=== PATIENT | male | born 1950 | race Caucasian/White ===

== ENCOUNTER → 2017-02-09 | Outpatient (CLI) | payer OTHER ==
[2015-10-13 12:14] VITALS: BP 158/78
--- NOTE | 2017-02-09 18:11 | RAD ---
HISTORY: Restrictive lung disease. Study: PA and lateral chest. Comparison: None. Findings: Study slightly limited secondary to the right costophrenic angle off the field of view. The trachea is midline. Postsurgical changes status post CABG. The cardiac silhouette is mildly enla rged. Obscuration of the left hemidiaphragm and costophrenic angle. This appears to localize to the lingula on the lateral view. This may represent infiltrate and associated parapneumonic effusion. A telectasis versus scarring is seen within the left mid lung. The visualized right lung is clear. No obvious pneumothorax. The bony thorax is unremarkable. IMPRESSION: Constellation of findings which may represent a lingular pneumonia and associated parapn eumonic effusion. Recommend clinical correlation and followup chest x-ray in 4-6 weeks to document s tability/resolution. Reported By:
== END ==
LOC: RAD 16:47
PROVIDERS: ATTEND Internal Medicine Sleep Medicine
DX: J98.4 Other disorders of lung (principal)
CPT/HCPCS: 71020

== ENCOUNTER → 2017-03-15 | Outpatient (CLI) | payer OTHER ==
[2015-10-13 12:14] VITALS: BP 158/78
[~2017-03-15] MED LIST: NS 100 ML IV 0 ML IV ONE
[2017-03-15 08:36] LABS: CREATININE 2.18 mg/dL (0.70-1.30)
--- NOTE | 2017-03-15 11:13 | CT ---
HISTORY: Pneumonia Study: CT chest without contrast Comparison: Chest radiographs performed on February 09, 2017 Technique: Multiple axial images of the chest were obtained from the thoracic inlet to the upper abdo men without the administration of IV contrast. Dose reduction techniques were utilized including auto mated exposure control (AEC) and adjustment of mA and kV. Findings: The mediastinum does not demonstrate significant pathological lymphadenopathy. There is no pericardi al effusion observed. Images demonstrate mild aneurysmal dilatation of the ascending thoracic aorta which measures up to 4.1 cm in caliber. Atherosclerotic changes are seen within the visualized pham ry arteries and aorta. Scattered areas of suspected atelectasis and or scarring are seen within the r ight middle lobe, lingula, and both lower lobes. Otherwise no CT evidence of focal consolidation, pne umothorax, or pleural effusion is identified. If symptoms are clinical concern persist recommend cont inued followup for further evaluation. IMPRESSION: 1. Mild aneurysmal dilatation of the ascending thoracic aorta measuring up to 4.1 cm in caliber. 2. Scattered areas of atelectasis and scarring without evidence of focal consolidation. Reported By:
== END | disposition home or self-care (01) | DRG 194 ==
LOC: RAD 08:07
PROVIDERS: ATTEND Internal Medicine Sleep Medicine
DX: J18.8 Other pneumonia, unspecified organism (principal); I71.2 Thoracic aortic aneurysm, without rupture; J98.11 Atelectasis
CPT/HCPCS: 36415; 71250; 82565; 84520

== ENCOUNTER 2017-06-23 20:49 | Emergency (ER) | payer OTHER ==
[2017-06-23 21:01] VITALS: BP 186/79; BMI 42.7
--- NOTE | 2017-06-23 22:32 | DR.GENAD ---
HPI - PCP Primary Care Physician: Zana - Complaint/Symptoms Chief Complaint Doctors Comments: Patient presented with complaint of nausea today and when his took his BP is developed a know in his left forearm. The pain was severe. He admits to have had ByPass surgery in the left carotid surgery. Chief Complaint:: KNOT in blood vessel in arm - Source History Provided: Patient - Mode of Arrival Mode of Arrival: Ambulatory - Timing Onset of Chief Complaint: 06/23/17 PMH - PMH Past Medical History: Yes Past Medical History: Angina, Arthritis, Diabetes, Gout, Hypertension, Renal Disease Past Medical History Comment: Lupus Past Surgical History: Yes Past Surgical History Comment: Double Bipass in 2009 - Family History History of Family Medical Conditions: No - Social History Does patient currently use any type of tobacco product: No Have you used tobacco products in the last 12 months: No Type of Tobacco Use: None Does any household member use tobacco: No Alcohol Use: None Do you use any recreational Drugs:: No Lives With: Alone Lives Where: Home - infectious screening In the last 2 months have you had wt loss of >10#?: NO Have you had fever, night sweats or hemotysis?: No Have you traveled outside the country in the last 6 months?: No ROS - Review of Systems Eyes: No Symptoms Reported ENTM: No Symptoms Reported Respiratoy: No Symptoms Reported Cardiovascular: No Symptoms Reported Gastrointestinal/Abdominal: No Symptoms Reported Genitourinary: No Symptoms Reported Neurological: No Symptoms Reported Musculoskeletal: No Symptoms Reported Integumentary: No Symptoms Reported Hematologic/Lymphatic: No Symptoms Reported Endocrine: No Symptoms Reported Psychiatric: No Symptoms Reported All Other Systems: Reviewed and Negative PE - Vital Signs Vitals: Temperature 97.8 F Pulse Rate 60 Respiratory Rate 18 Blood Pressure 186/79 O2 Sat by Pulse Oximetry 95 - General General Appearance: Alert, In No Apparent Distress - Head Head Exam: Normal Inspection, Atraumatic - Eyes Eye exam: Normal Appearance, PERRL, EOMI - ENT ENT Exam: Normal Exam External Ear Exam: Normal External Inspection TM/Canal Exam: Bilateral Normal Nose Exam: Normal Nose Exam, Sinus Tenderness Mouth Exam: Normal Inspection Throat Exam: Normal Inspection - Neck Neck Exam: Normal Inspection - Chest Chest Inspection: Normal Inspection - Respiratory Respiratory Exam: Normal Lung Sounds Bilat Respiratory Exam: Bilateral Clear to Auscultation - Cardiovascular Cardiovascular Exam: Regular Rate, Normal Rhythm - Abdominal Exam Abdominal Exam: Normal Inspection Abdominal Tenderness: negative: RUQ, RLQ, LUQ, LLQ, Epigastrium, Suprapubic, Diffuse, Mild, Moderate, Severe, Other - Extremities Extremities Exam: Normal Inspection - Back Back Exam: Normal Inspection - Neurologic Neurological Exam: Alert, Oriented X3, CN II-XII Intact - Skin Skin Exam: Warm, Dry Course - Reevaluation 1st: Improved ROR - Labs Reviewed Laboratory Results Reviewed?: Yes (D Dimer negative) Result Diagrams: 06/23/17 22:43 06/23/17 22:43 Laboratory: WBC 8.9 X10^3/uL (3.6-10.0) 06/23/17 22:43 RBC 4.21 X10^6/uL (4.7-6.0) L 06/23/17 22:43 Hgb 12.4 g/dL (13.5-18.0) L 06/23/17 22:43 Hct 37.2 % (42.0-54.0) L 06/23/17 22:43 MCV 88.4 fL (80.0-100.0) 06/23/17 22:43 MCH 29.3 pg (27.0-34.0) 06/23/17 22:43 MCHC 33.2 g/dL (33.0-35.0) 06/23/17 22:43 RDW 14.2 % (11.6-16.5) 06/23/17 22:43 Plt Count 239 X10^3/uL (150.0-450.0) 06/23/17 22:43 MPV 8.1 fL (7.4-11.0) 06/23/17 22:43 Neut % 77.5 % (42.0-75.0) H 06/23/17 22:43 Lymph % 12.9 % (21.0-51.0) L 06/23/17 22:43 [place] % 8.3 % (0.0-13.0) 06/23/17 22:43 Eos % 0.7 % (0.9-2.9) L 06/23/17 22:43 Baso % 0.6 % (0.2-1.0) 06/23/17 22:43 Neut # 6.9 x10^3/uL (2.2-4.8) H 06/23/17 22:43 Lymph # 1.2 X10^3/uL (1.3-2.9) L 06/23/17 22:43 [place] # 0.7 x10^3/uL (0.3-0.8) 06/23/17 22:43 Eos # 0.1 x10^3/uL (0.0-0.2) 06/23/17 22:43 Baso # 0.1 X10^3/uL (0.0-0.1) 06/23/17 22:43 Absolute Nucleated RBC 0.1 /100WBC 06/23/17 22:43 D-Dimer 261 ng/mL (0-400) 06/23/17 22:43 Sodium 138 mmol/L (136-145) 06/23/17 22:43 Corrected Sodium 138 mmol/L (136-145) 06/23/17 22:43 Potassium 4.6 mmol/L (3.5-5.1) 06/23/17 22:43 Chloride 103 mmol/L (98-107) 06/23/17 22:43 Carbon Dioxide 27.5 mmol/L (21-32) 06/23/17 22:43 BUN 45 mg/dL (7-18) H 06/23/17 22:43 Creatinine 2.05 mg/dL (0.70-1.30) H 06/23/17 22:43 Est GFR (MDRD) Af Amer 42 (>60) L 06/23/17 22:43 Est GFR (MDRD) Non-Af 35 (>60) L 06/23/17 22:43 Glucose 116 mg/dL (65-99) H 06/23/17 22:43 POC Glucose (mg/dL) 114 mg/dL (65-99) H 06/23/17 23:24 Calcium 9.2 mg/dL (8.5-10.1) 06/23/17 22:43 - Diagnosis Discharge Problem: Negative pulmonary emboli, Stage III chronic kidney disease - Discharge Plan Condition: Stable - Follow ups/Referrals Follow ups/Referrals: Yonatan Spann [Primary Care Provider] - 3 days - Instructions
[2017-06-23 22:53] LABS: BASOPHILS # (AUTO) 0.1 X10^3/uL (0.0-0.1); BASOPHILS % (AUTO) 0.6 % (0.2-1.0); EOSINOPHILS # (AUTO) 0.1 x10^3/uL (0.0-0.2); EOSINOPHILS % (AUTO) 0.7 % (0.9-2.9); HEMATOCRIT 37.2 % (42.0-54.0); HEMOGLOBIN 12.4 g/dL (13.5-18.0); LYMPHOCYTES # (AUTO) 1.2 X10^3/uL (1.3-2.9); LYMPHOCYTES % (AUTO) 12.9 % (21.0-51.0); MEAN CORPUSCULAR HEMOGLOBIN 29.3 pg (27.0-34.0); MEAN CORPUSCULAR HGB CONC 33.2 g/dL (33.0-35.0); MEAN CORPUSCULAR VOLUME 88.4 fL (80.0-100.0); MEAN PLATELET VOLUME 8.1 fL (7.4-11.0); MONOCYTES # (AUTO) 0.7 x10^3/uL (0.3-0.8); MONOCYTES % (AUTO) 8.3 % (0.0-13.0); NEUTROPHILS # (AUTO) 6.9 x10^3/uL (2.2-4.8); NEUTROPHILS % (AUTO) 77.5 % (42.0-75.0); PLATELET COUNT 239 X10^3/uL (150.0-450.0); RED BLOOD COUNT 4.21 X10^6/uL (4.7-6.0); RED CELL DISTRIBUTION WIDTH 14.2 % (11.6-16.5); WHITE BLOOD COUNT 8.9 X10^3/uL (3.6-10.0)
[2017-06-23 22:59] LABS: CALCIUM 9.2 mg/dL (8.5-10.1); CARBON DIOXIDE 27.5 mmol/L (21-32); CREATININE 2.05 mg/dL (0.70-1.30)
== END 2017-06-23 23:56 | disposition home or self-care (01) ==
LOC: ER 20:49
DX: R11.0 Nausea (principal); N18.3 Chronic kidney disease, stage 3 (moderate); Z98.890 Other specified postprocedural states
CPT/HCPCS: 36415; 80048; 85025; 85378; 99282; 99283

== ENCOUNTER 2018-12-10 17:01 | Inpatient (IN) ==
[2018-12-10 18:55] LABS: BASOPHILS % (AUTO) 0.4 % (0.2-1.0); EOSINOPHILS % (AUTO) 0.3 % (0.9-2.9); HEMATOCRIT 35.7 % (42.0-54.0); HEMOGLOBIN 11.7 g/dL (13.5-18.0); LYMPHOCYTES # (AUTO) 1.2 X10^3/uL (1.3-2.9); LYMPHOCYTES % (AUTO) 10.9 % (21.0-51.0); MEAN CORPUSCULAR HEMOGLOBIN 27.5 pg (27.0-34.0); MEAN CORPUSCULAR HGB CONC 32.8 g/dL (33.0-35.0); MEAN CORPUSCULAR VOLUME 83.9 fL (80.0-100.0); MEAN PLATELET VOLUME 7.7 fL (7.4-11.0); MONOCYTES # (AUTO) 0.6 x10^3/uL (0.3-0.8); NEUTROPHILS # (AUTO) 8.9 x10^3/uL (2.2-4.8); NEUTROPHILS % (AUTO) 82.4 % (42.0-75.0); PLATELET COUNT 342 X10^3/uL (150.0-450.0); RED BLOOD COUNT 4.25 X10^6/uL (4.7-6.0); WHITE BLOOD COUNT 10.8 X10^3/uL (3.6-10.0)
[2018-12-10 19:09] LABS: ALANINE AMINOTRANSFERASE 23 Units/L (12-78); ALBUMIN 3.5 g/dL (3.4-5.0); ALKALINE PHOSPHATASE 87 Units/L (46-116); AMYLASE 39 Units/L (25-115); ASPARTATE AMINO TRANSFERASE 21 Units/L (15-37); BLOOD UREA NITROGEN 42 mg/dL (7-18); CALCIUM 9.8 mg/dL (8.5-10.1); CARBON DIOXIDE 29.3 mmol/L (21-32); CHLORIDE 99 mmol/L (98-107); COR NA(FOR HYPERGLY) 141 mmol/L (136-145); CREATININE 2.29 mg/dL (0.70-1.30); LIPASE 93 Units/L (73-393); SODIUM 139 mmol/L (136-145); TOTAL PROTEIN 7.4 g/dL (6.4-8.2); eGFR NON BLACK RACES 31 (>60)
[2018-12-10] MEDS ORDERED: NS 1000 ML 1,000 ML ONE (19:46)
[2018-12-10] MEDS ORDERED: ZOFRAN INJ 4 MG VIAL ONE (19:47)
[2018-12-10] MEDS: SNACK - Diabetic Appropriate PO SCH (20:00)
[2018-12-10] MEDS: NS 1000 ML 1,000 ML IV SCH (20:20)
[2018-12-10] MEDS: ZOFRAN INJ 4 MG VIAL IVP PRN (20:20)
[2018-12-10] MEDS ORDERED: PROVENTIL NEB TX 0.083% 2.5MG/ 3ML NEB PRN (20:29)
[2018-12-10] MEDS: AMBIEN PO SCH (21:00)
[2018-12-10 21:45] LABS: BILIRUBIN,URINE NEGATIVE (NEGATIVE); BLOOD/HEMOGLOBIN,URINE 3+ (NEGATIVE); GLUCOSE, URINE NEGATIVE (NEGATIVE); KETONES,URINE NEGATIVE (NEGATIVE); LEUKOCYTE ESTERASE ,URINE NEGATIVE (NEGATIVE); NITRITES,URINE NEGATIVE (NEGATIVE); PROTEIN,URINE 1+ (NEGATIVE); UROBILINOGEN,URINE NORMAL (NORMAL)
[2018-12-10 21:55] LABS: APPEARANCE,URINE CLEAR (CLEAR); BACTERIA,URINE NEGATIVE /HPF (NEGATIVE); COLOR,URINE YELLOW (YELLOW); HYALINE CASTS, URINE FEW /LPF (NEGATIVE); SQUAMOUS EPITHELIAL CELL,UR NEGATIVE /HPF (NEGATIVE)
[2018-12-11 06:05] LABS: BASOPHILS # (AUTO) 0.1 X10^3/uL (0.0-0.1); BASOPHILS % (AUTO) 1.3 % (0.2-1.0); EOSINOPHILS # (AUTO) 0.1 x10^3/uL (0.0-0.2); EOSINOPHILS % (AUTO) 1.4 % (0.9-2.9); HEMATOCRIT 33.8 % (42.0-54.0); HEMOGLOBIN 10.9 g/dL (13.5-18.0); LYMPHOCYTES # (AUTO) 1.6 X10^3/uL (1.3-2.9); LYMPHOCYTES % (AUTO) 16.9 % (21.0-51.0); MEAN CORPUSCULAR HEMOGLOBIN 27.3 pg (27.0-34.0); MEAN CORPUSCULAR HGB CONC 32.4 g/dL (33.0-35.0); MEAN CORPUSCULAR VOLUME 84.3 fL (80.0-100.0); MEAN PLATELET VOLUME 8.4 fL (7.4-11.0); MONOCYTES # (AUTO) 0.9 x10^3/uL (0.3-0.8); NEUTROPHILS # (AUTO) 6.4 x10^3/uL (2.2-4.8); NEUTROPHILS % (AUTO) 70.4 % (42.0-75.0); PLATELET COUNT 279 X10^3/uL (150.0-450.0); RED BLOOD COUNT 4.01 X10^6/uL (4.7-6.0); RED CELL DISTRIBUTION WIDTH 15.4 % (11.6-16.5); WHITE BLOOD COUNT 9.2 X10^3/uL (3.6-10.0)
[2018-12-11 06:27] LABS: ALANINE AMINOTRANSFERASE 22 Units/L (12-78); ALBUMIN 3.1 g/dL (3.4-5.0); ALKALINE PHOSPHATASE 75 Units/L (46-116); ASPARTATE AMINO TRANSFERASE 22 Units/L (15-37); BLOOD UREA NITROGEN 41 mg/dL (7-18); CALCIUM 9.4 mg/dL (8.5-10.1); CARBON DIOXIDE 30.9 mmol/L (21-32); CHLORIDE 102 mmol/L (98-107); COR CA(FOR HYPOALB) 10.1 mg/dL (8.5-10.1); CREATININE 2.14 mg/dL (0.70-1.30); SODIUM 141 mmol/L (136-145); TOTAL PROTEIN 6.8 g/dL (6.4-8.2); eGFR NON BLACK RACES 33 (>60)
--- NOTE | 2018-12-11 06:39 | RAD ---
HISTORY: Abdominal pain Study: KUB Comparison: None Findings: The abdominal gas pattern is nonspecific and nonobstructive. No abnormal calcifications or abnormal masses are identified. The regional skeleton is intact. IMPRESSION: Unremarkable KUB Reported By:
[2018-12-11 07:18] VITALS: BMI 39.7
[2018-12-11] MEDS ORDERED: PHARMACY CONSULT - DOSE _____ XX SCH (08:00)
[2018-12-11] MEDS: NORCO 5/325 MG TAB PO PRN (09:16)
[2018-12-11] MEDS: MILK OF MAGNESIA PO SCH ×3 (09:40→21:05)
[2018-12-11] MEDS: MIRALAX POWDER (1 DOSE 17 G) PO SCH ×2 (09:42→21:09)
[2018-12-11] MEDS ORDERED: ULORIC PO SCH (11:00)
[2018-12-11] MEDS: NORMODYNE TAB 100 MG PO SCH ×2 (11:38→21:06)
[2018-12-11] MEDS: SYNTHROID 100 mcg TAB PO SCH (11:38)
[2018-12-11] MEDS: ASPIRIN EC 81 MG PO SCH (11:38)
[2018-12-11] MEDS: PATIENT'S HOME MEDICATION (Mycophenolate Mofetil [Mycophenolate Mofetil] 500 MG) PO SCH ×2 (11:39→21:21)
[2018-12-11] MEDS: NS 1000 ML 1,000 ML IV SCH (12:34)
[2018-12-11] MEDS: HumuLIN R SUBCUT PRN ×2 (12:35→21:21)
[2018-12-11] MEDS: EFFEXOR TAB 50 MG (BID DOSING) PO SCH ×2 (14:50→21:19)
--- NOTE | 2018-12-11 16:40 | DR.UPDATE ---
H&P Update History and Physical Update: WAS SEEN IN THE OFFICE TODAY DUE TO COMPLAINTS OF ABDOMINAL PAIN, CONSTIPATION, FATIGUE, HYPERTENSION, DECREASED APPETITE, AND NEARLY PASSING OUT. HE HAS A HISTORY OF DIABETES AND RENAL DISEASE. WE ADMITTED PATIENT FOR FURTHER EVALUATION AND TREATMENT. ON ADMISSION, WE PLAN TO OBTAIN LABS AND KUB. WE WILL START NORMAL SALINE AT 50ML/HR AND A BOWEL REGIMEN. OTHERWISE, WE WILL MONITOR. NO CHANGES NOTED TO H&P. Changes noted: NO Prescription drug monitoring program results: PDMP reviewed and no concerns identified
--- NOTE | 2018-12-11 17:28 | PCM.PROG ---
Progress Note - Progress Note for Day of Date of Exam: 12/11/18 - Subjective Subjective: IS BEING TREATED FOR ABDOMINAL PAIN, CONSTIPATION, AND NEAR SYNCOPE. TODAY, HE IS ALERT AND ORIENTED, LYING IN BED ON MORNING ROUNDS. HE CONTINUES WITH ABDOMINAL PAIN AND WEAKNESS THIS MORNING. ON EXAMINATION, HEART IS REGULAR IN RATE AND RHYTHM. BILATERAL LUNGS ARE NOTED WITH DIMINISHED LUNG SOUNDS THROUGHOUT. ABDOMEN IS ROUND, SOFT, AND NOTED WITH DIFFUSE TENDERNESS. HYPOACTIVE BOWEL SOUNDS NOTED. HIS VITALS THIS MORNING ARE: 98.0-64-24-96%-187/76. LABS WERE OBTAINED. ABNORMAL LAB VALUES INCLUDE THE FOLLOWING: RBC 4.01, HGB 10.9, HCT 33.8, BUN 41, CREATININE 2.14, ALBUMIN 3.1. A KUB WAS OBTAINED ON ADMISSION AND REVEALED: The abdominal gas pattern is nonspecific and nonobstructive. No abnormal calcifications or abnormal masses are identified. The regional skeleton is intact. HE IS CURRENTLY RECEIVING NORMAL SALINE AT 50ML/HR AND IS RECEIVING A BOWEL REGIMEN. WE WILL CONTINUE WITH CURRENT PLAN OF CARE AND WILL RESUME HIS HOME MEDICATIONS TODAY. OTHERWISE, WE WILL FOLLOW UP WITH AM LABS AND CONTINUE TO MONITOR. - Past Medical Family Social History Past Med/Fam/Surg Hx: No changes since H&P Allergies: Allergies codeine Allergy (Verified 06/24/17 05:00) - Review of Systems ROS: No change since H&P - Vital Signs and I&O's Vital Signs: Temperature 98.4 F Pulse Rate [Right Brachial] 61 Pulse Rate 63 Respiratory Rate 20 Blood Pressure [Right Arm] 130/62 Blood Pressure 186/79 O2 Sat by Pulse Oximetry 97 Intake and Output: Intake & Output 12/09/18 12/10/18 12/11/18 12/12/18 11:59 11:59 11:59 11:59 Intake Total 1790 / 1790 780 / 780 Balance 1790 / 1790 780 / 780 - Physical Exam Oriented: Normal Eyes: Normal Ear: Normal Nose: Normal Throat: Normal Respiratory: Generalized, Diminished Cardiovascular: Normal. negative: S3, S4, Murmur : Normal Auscultation: Bowel Sounds: Decreased Palpation: Normal Tenderness: Diffuse, Moderate, Rebound, Guarding, Rigidity Skin: Normal Musculoskeletal: Normal Psychiatric: Normal Mood Description: Calm Affect: Normal Speech Pattern: Clear, Appropriate - Laboratory and Diagnostics Result Diagrams: 12/11/18 05:24 12/11/18 05:24 Labs: Laboratory WBC 9.2 X10^3/uL (3.6-10.0) 12/11/18 05:24 RBC 4.01 X10^6/uL (4.7-6.0) L 12/11/18 05:24 Hgb 10.9 g/dL (13.5-18.0) L 12/11/18 05:24 Hct 33.8 % (42.0-54.0) L 12/11/18 05:24 MCV 84.3 fL (80.0-100.0) 12/11/18 05:24 MCH 27.3 pg (27.0-34.0) 12/11/18 05:24 MCHC 32.4 g/dL (33.0-35.0) L 12/11/18 05:24 RDW 15.4 % (11.6-16.5) 12/11/18 05:24 Plt Count 279 X10^3/uL (150.0-450.0) 12/11/18 05:24 MPV 8.4 fL (7.4-11.0) 12/11/18 05:24 Neut % (Auto) 70.4 % (42.0-75.0) 12/11/18 05:24 Lymph % (Auto) 16.9 % (21.0-51.0) L 12/11/18 05:24 [place] % (Auto) 10.0 % (0.0-13.0) 12/11/18 05:24 Eos % (Auto) 1.4 % (0.9-2.9) 12/11/18 05:24 Baso % (Auto) 1.3 % (0.2-1.0) H 12/11/18 05:24 Neut # (Auto) 6.4 x10^3/uL (2.2-4.8) H 12/11/18 05:24 Lymph # (Auto) 1.6 X10^3/uL (1.3-2.9) 12/11/18 05:24 [place] # (Auto) 0.9 x10^3/uL (0.3-0.8) H 12/11/18 05:24 Eos # (Auto) 0.1 x10^3/uL (0.0-0.2) 12/11/18 05:24 Baso # (Auto) 0.1 X10^3/uL (0.0-0.1) 12/11/18 05:24 Absolute Nucleated RBC 0.0 /100WBC 12/11/18 05:24 Sodium 141 mmol/L (136-145) 12/11/18 05:24 Corrected Sodium TNP 12/11/18 05:24 Potassium 3.9 mmol/L (3.5-5.1) 12/11/18 05:24 Chloride 102 mmol/L (98-107) 12/11/18 05:24 Carbon Dioxide 30.9 mmol/L (21-32) 12/11/18 05:24 BUN 41 mg/dL (7-18) H 12/11/18 05:24 Creatinine 2.14 mg/dL (0.70-1.30) H 12/11/18 05:24 Est GFR (MDRD) Af Amer 40 (>60) L 12/11/18 05:24 Est GFR (MDRD) Non-Af 33 (>60) L 12/11/18 05:24 Glucose 92 mg/dL (65-99) 12/11/18 05:24 POC Glucose (mg/dL) 254 mg/dL (65-99) H 12/11/18 16:03 Calcium 9.4 mg/dL (8.5-10.1) 12/11/18 05:24 Corrected Calcium 10.1 mg/dL (8.5-10.1) 12/11/18 05:24 Total Bilirubin 0.30 mg/dL (0.2-1.0) 12/11/18 05:24 AST 22 Units/L (15-37) 12/11/18 05:24 ALT 22 Units/L (12-78) 12/11/18 05:24 Alkaline Phosphatase 75 Units/L (46-116) 12/11/18 05:24 Total Protein 6.8 g/dL (6.4-8.2) 12/11/18 05:24 Albumin 3.1 g/dL (3.4-5.0) L 12/11/18 05:24 Globulin 3.7 g/dL (2.5-4.5) 12/11/18 05:24 Albumin/Globulin Ratio 0.8 Ratio (1.1-2.1) L 12/11/18 05:24 Amylase 39 Units/L (25-115) 12/10/18 18:47 Lipase 93 Units/L (73-393) 12/10/18 18:47 Specimen Type Clean catch urine 12/10/18 21:35 Urine Color Yellow (YELLOW) 12/10/18 21:35 Urine Appearance Clear (CLEAR) 12/10/18 21:35 Urine pH 5.0 (5.0 - 8.0) 12/10/18 21:35 Ur Specific [place] 1.015 (1.000-1.030) 12/10/18 21:35 Urine Protein 1+ (NEGATIVE) 12/10/18 21:35 Urine Glucose (UA) Negative (NEGATIVE) 12/10/18 21:35 Urine Ketones Negative (NEGATIVE) 12/10/18 21:35 Urine Occult Blood 3+ (NEGATIVE) 12/10/18 21:35 Urine Nitrite Negative (NEGATIVE) 12/10/18 21:35 Urine Bilirubin Negative (NEGATIVE) 12/10/18 21:35 Urine Urobilinogen Normal (NORMAL) 12/10/18 21:35 Ur Leukocyte Esterase Negative (NEGATIVE) 12/10/18 21:35 Urine RBC 3-5 /HPF (NONE SEEN) 12/10/18 21:35 Urine WBC None seen /HPF (NONE SEEN) 12/10/18 21:35 Ur Squamous Epith Cells Negative /HPF (NEGATIVE) 12/10/18 21:35 Urine Bacteria Negative /HPF (NEGATIVE) 12/10/18 21:35 Hyaline Casts Few /LPF (NEGATIVE) 12/10/18 21:35 Ur Culture Indicated? No/not indicated 12/10/18 21:35 - Plan (1) Abdominal pain Status: Acute Qualifiers: Abdominal location: generalized Qualified Code(s): R10.84 - Generalized abdominal pain Plan: PAIN CONTROL, BOWEL REGIMEN, CONTINUE TO MONITOR (2) Constipation Status: Acute Qualifiers: Constipation type: unspecified constipation type Qualified Code(s): K59.00 - Constipation, unspecified Plan: BOWEL REGIMEN, CONTINUE TO MONITOR (3) Near syncope Status: Acute (4) Stage III chronic kidney disease Status: Acute
[2018-12-11] MEDS: AMBIEN PO SCH ×2 (21:08→21:09)
[2018-12-11] MEDS ORDERED: BUTT CREAM (COMPOUND) TOP PRN (21:19)
[2018-12-11] MEDS: ZOFRAN INJ 4 MG VIAL IVP PRN (21:22)
[2018-12-12] MEDS ORDERED: CATAPRES TAB 0.1 MG PO ONE ×2 (01:00→03:27)
[2018-12-12] MEDS ORDERED: CATAPRES TAB 0.1 MG ONE ×2 (01:01→03:29)
[2018-12-12] MEDS: AMBIEN PO SCH ×2 (01:49→21:28)
[2018-12-12] MEDS: NS 1000 ML 1,000 ML IV SCH ×3 (01:51→14:36)
[2018-12-12 06:26] LABS: BASOPHILS # (AUTO) 0.1 X10^3/uL (0.0-0.1); BASOPHILS % (AUTO) 0.9 % (0.2-1.0); EOSINOPHILS # (AUTO) 0.1 x10^3/uL (0.0-0.2); EOSINOPHILS % (AUTO) 1.1 % (0.9-2.9); HEMATOCRIT 33.3 % (42.0-54.0); LYMPHOCYTES # (AUTO) 0.9 X10^3/uL (1.3-2.9); LYMPHOCYTES % (AUTO) 10.4 % (21.0-51.0); MEAN CORPUSCULAR HEMOGLOBIN 27.8 pg (27.0-34.0); MEAN CORPUSCULAR VOLUME 84.1 fL (80.0-100.0); MEAN PLATELET VOLUME 8.2 fL (7.4-11.0); MONOCYTES # (AUTO) 0.7 x10^3/uL (0.3-0.8); MONOCYTES % (AUTO) 7.7 % (0.0-13.0); NEUTROPHILS # (AUTO) 7.2 x10^3/uL (2.2-4.8); NEUTROPHILS % (AUTO) 79.9 % (42.0-75.0); PLATELET COUNT 266 X10^3/uL (150.0-450.0); RED BLOOD COUNT 3.96 X10^6/uL (4.7-6.0); RED CELL DISTRIBUTION WIDTH 14.6 % (11.6-16.5); WHITE BLOOD COUNT 9.1 X10^3/uL (3.6-10.0)
[2018-12-12] MEDS: HumuLIN R SUBCUT PRN ×3 (06:33→22:46)
[2018-12-12 06:44] LABS: ALBUMIN 2.9 g/dL (3.4-5.0); CALCIUM 9.2 mg/dL (8.5-10.1); CARBON DIOXIDE 29.7 mmol/L (21-32); COR CA(FOR HYPOALB) 10.1 mg/dL (8.5-10.1); CREATININE 1.82 mg/dL (0.70-1.30); TOTAL PROTEIN 6.7 g/dL (6.4-8.2)
[2018-12-12] MEDS: PATIENT'S HOME MEDICATION (Mycophenolate Mofetil [Mycophenolate Mofetil] 500 MG) PO SCH ×2 (08:19→22:44)
[2018-12-12] MEDS: ASPIRIN EC 81 MG PO SCH (08:20)
[2018-12-12] MEDS: SYNTHROID 100 mcg TAB PO SCH (08:20)
[2018-12-12] MEDS: NORMODYNE TAB 100 MG PO SCH ×2 (08:23→22:46)
[2018-12-12] MEDS: EFFEXOR TAB 50 MG (BID DOSING) PO SCH ×2 (08:24→22:43)
[2018-12-12] MEDS: MILK OF MAGNESIA PO SCH ×5 (08:25→22:45)
[2018-12-12] MEDS: PREDNISONE TAB 5 MG PO SCH ×2 (08:25→17:15)
[2018-12-12] MEDS: MIRALAX POWDER (1 DOSE 17 G) PO SCH ×2 (08:26→21:27)
[2018-12-12] MEDS: NORVASC TAB 10 MG PO SCH (11:36)
[2018-12-12] MEDS: BENICAR TAB 40 MG PO SCH (11:36)
[2018-12-12] MEDS: INSULIN DEGLUDEC 30 UNIT subcut SCH (11:37)
--- NOTE | 2018-12-12 18:31 | PCM.PROG ---
Progress Note - Progress Note for Day of Date of Exam: 12/12/18 - Subjective Subjective: IS BEING TREATED FOR ABDOMINAL PAIN, CONSTIPATION, AND NEAR SYNCOPE. TODAY, HE IS ALERT AND ORIENTED, LYING IN BED ON MORNING ROUNDS. HE REPORTS THAT ABDOMINAL PAIN HAS IMPROVED SINCE HAVING SEVERAL BOWEL MOVEMENTS. ON EXAMINATION, HEART IS REGULAR IN RATE AND RHYTHM. BILATERAL LUNGS ARE NOTED WITH DIMINISHED LUNG SOUNDS THROUGHOUT. ABDOMEN IS ROUND, SOFT, AND NOTED WITH DIFFUSE TENDERNESS. NORMAL BOWEL SOUNDS NOTED. HIS VITALS THIS MORNING ARE: 97.9-76-20-96%-224/87. LABS WERE OBTAINED. ABNORMAL LAB VALUES INCLUDE THE FOLLOWING: RBC 3.96, HGB 11.0, HCT 33.3, BUN 31, CREATININE 1.82, GLUCOSE 236, ALBUMIN 2.9. HE IS CURRENTLY RECEIVING NORMAL SALINE AT 50ML/HR AND IS RECEIVING A BOWEL REGIMEN. TODAY, WE WILL START AMLODIPINE 10MG PO DAILY AND BENICAR 20MG PO DAILY. WE WILL OBTAIN AN ECHO. OTHERWISE, WE WILL FOLLOW UP WITH AM LABS AND CONTINUE TO MONITOR. - Past Medical Family Social History Past Med/Fam/Surg Hx: No changes since H&P Allergies: Allergies codeine Allergy (Verified 06/24/17 05:00) - Review of Systems ROS: No change since H&P - Vital Signs and I&O's Vital Signs: Temperature 98 F Pulse Rate [Right Brachial] 60 Pulse Rate 84 Respiratory Rate 18 Blood Pressure [Right Arm] 141/67 Blood Pressure 186/79 O2 Sat by Pulse Oximetry 100 Intake and Output: Intake & Output 12/10/18 12/11/18 12/12/18 12/13/18 11:59 11:59 11:59 11:59 Intake Total 1790 / 1790 3020 / 3020 840 / 840 Balance 1790 / 1790 3020 / 3020 840 / 840 - Physical Exam Oriented: Normal Eyes: Normal Ear: Normal Nose: Normal Throat: Normal Respiratory: Generalized, Diminished Cardiovascular: Normal. negative: S3, S4, Murmur : Normal Auscultation: Bowel Sounds: Normal Palpation: Normal Tenderness: Diffuse, Moderate. negative: Rebound, Guarding, Rigidity Skin: Normal Musculoskeletal: Normal Psychiatric: Normal Mood Description: Calm Affect: Normal Speech Pattern: Clear, Appropriate - Laboratory and Diagnostics Result Diagrams: 12/12/18 05:54 12/12/18 05:54 Labs: Laboratory WBC 9.1 X10^3/uL (3.6-10.0) 12/12/18 05:54 RBC 3.96 X10^6/uL (4.7-6.0) L 12/12/18 05:54 Hgb 11.0 g/dL (13.5-18.0) L 12/12/18 05:54 Hct 33.3 % (42.0-54.0) L 12/12/18 05:54 MCV 84.1 fL (80.0-100.0) 12/12/18 05:54 MCH 27.8 pg (27.0-34.0) 12/12/18 05:54 MCHC 33.0 g/dL (33.0-35.0) 12/12/18 05:54 RDW 14.6 % (11.6-16.5) 12/12/18 05:54 Plt Count 266 X10^3/uL (150.0-450.0) 12/12/18 05:54 MPV 8.2 fL (7.4-11.0) 12/12/18 05:54 Neut % (Auto) 79.9 % (42.0-75.0) H 12/12/18 05:54 Lymph % (Auto) 10.4 % (21.0-51.0) L 12/12/18 05:54 [place] % (Auto) 7.7 % (0.0-13.0) 12/12/18 05:54 Eos % (Auto) 1.1 % (0.9-2.9) 12/12/18 05:54 Baso % (Auto) 0.9 % (0.2-1.0) 12/12/18 05:54 Neut # (Auto) 7.2 x10^3/uL (2.2-4.8) H 12/12/18 05:54 Lymph # (Auto) 0.9 X10^3/uL (1.3-2.9) L 12/12/18 05:54 [place] # (Auto) 0.7 x10^3/uL (0.3-0.8) 12/12/18 05:54 Eos # (Auto) 0.1 x10^3/uL (0.0-0.2) 12/12/18 05:54 Baso # (Auto) 0.1 X10^3/uL (0.0-0.1) 12/12/18 05:54 Absolute Nucleated RBC 0.0 /100WBC 12/12/18 05:54 Sodium 138 mmol/L (136-145) 12/12/18 05:54 Corrected Sodium 141 mmol/L (136-145) 12/12/18 05:54 Potassium 4.4 mmol/L (3.5-5.1) 12/12/18 05:54 Chloride 102 mmol/L (98-107) 12/12/18 05:54 Carbon Dioxide 29.7 mmol/L (21-32) 12/12/18 05:54 BUN 31 mg/dL (7-18) H 12/12/18 05:54 Creatinine 1.82 mg/dL (0.70-1.30) H 12/12/18 05:54 Est GFR (MDRD) Af Amer 48 (>60) L 12/12/18 05:54 Est GFR (MDRD) Non-Af 40 (>60) L 12/12/18 05:54 Glucose 236 mg/dL (65-99) H 12/12/18 05:54 POC Glucose (mg/dL) 235 mg/dL (65-99) H 12/12/18 05:58 Calcium 9.2 mg/dL (8.5-10.1) 12/12/18 05:54 Corrected Calcium 10.1 mg/dL (8.5-10.1) 12/12/18 05:54 Total Bilirubin 0.30 mg/dL (0.2-1.0) 12/12/18 05:54 AST 17 Units/L (15-37) 12/12/18 05:54 ALT 22 Units/L (12-78) 12/12/18 05:54 Alkaline Phosphatase 78 Units/L (46-116) 12/12/18 05:54 Total Protein 6.7 g/dL (6.4-8.2) 12/12/18 05:54 Albumin 2.9 g/dL (3.4-5.0) L 12/12/18 05:54 Globulin 3.8 g/dL (2.5-4.5) 12/12/18 05:54 Albumin/Globulin Ratio 0.8 Ratio (1.1-2.1) L 12/12/18 05:54 Amylase 39 Units/L (25-115) 12/10/18 18:47 Lipase 93 Units/L (73-393) 12/10/18 18:47 Specimen Type Clean catch urine 12/10/18 21:35 Urine Color Yellow (YELLOW) 12/10/18 21:35 Urine Appearance Clear (CLEAR) 12/10/18 21:35 Urine pH 5.0 (5.0 - 8.0) 12/10/18 21:35 Ur Specific [place] 1.015 (1.000-1.030) 12/10/18 21:35 Urine Protein 1+ (NEGATIVE) 12/10/18 21:35 Urine Glucose (UA) Negative (NEGATIVE) 12/10/18 21:35 Urine Ketones Negative (NEGATIVE) 12/10/18 21:35 Urine Occult Blood 3+ (NEGATIVE) 12/10/18 21:35 Urine Nitrite Negative (NEGATIVE) 12/10/18 21:35 Urine Bilirubin Negative (NEGATIVE) 12/10/18 21:35 Urine Urobilinogen Normal (NORMAL) 12/10/18 21:35 Ur Leukocyte Esterase Negative (NEGATIVE) 12/10/18 21:35 Urine RBC 3-5 /HPF (NONE SEEN) 12/10/18 21:35 Urine WBC None seen /HPF (NONE SEEN) 12/10/18 21:35 Ur Squamous Epith Cells Negative /HPF (NEGATIVE) 12/10/18 21:35 Urine Bacteria Negative /HPF (NEGATIVE) 12/10/18 21:35 Hyaline Casts Few /LPF (NEGATIVE) 12/10/18 21:35 Ur Culture Indicated? No/not indicated 12/10/18 21:35 - Plan (1) Abdominal pain Status: Resolved Qualifiers: Abdominal location: generalized Qualified Code(s): R10.84 - Generalized abdominal pain Plan: PAIN CONTROL, BOWEL REGIMEN, CONTINUE TO MONITOR (2) Constipation Status: Resolved Qualifiers: Constipation type: unspecified constipation type Qualified Code(s): K59.00 - Constipation, unspecified Plan: BOWEL REGIMEN, CONTINUE TO MONITOR (3) Near syncope Status: Acute (4) Stage III chronic kidney disease Status: Acute (5) Hypertension Status: Acute Qualifiers: Hypertension type: essential hypertension Qualified Code(s): I10 - Essential (primary) hypertension Plan: CONTINUE HOME MEDS, START AMLODIPINE 10MG PO DAILY AND BENICAR 20MG PO DAILY, CONTINUE TO MONITOR
[2018-12-12] MEDS ORDERED: VISTARIL PO PRN (20:23)
[2018-12-12] MEDS: SNACK - Diabetic Appropriate PO SCH (21:28)
[2018-12-13] MEDS: NORCO 5/325 MG TAB PO PRN (00:29)
[2018-12-13 05:25] LABS: BASOPHILS # (AUTO) 0.1 X10^3/uL (0.0-0.1); BASOPHILS % (AUTO) 0.8 % (0.2-1.0); EOSINOPHILS # (AUTO) 0.1 x10^3/uL (0.0-0.2); EOSINOPHILS % (AUTO) 1.7 % (0.9-2.9); HEMATOCRIT 31.9 % (42.0-54.0); HEMOGLOBIN 10.2 g/dL (13.5-18.0); LYMPHOCYTES # (AUTO) 1.2 X10^3/uL (1.3-2.9); LYMPHOCYTES % (AUTO) 14.6 % (21.0-51.0); MEAN CORPUSCULAR HEMOGLOBIN 27.5 pg (27.0-34.0); MEAN CORPUSCULAR HGB CONC 32.1 g/dL (33.0-35.0); MEAN CORPUSCULAR VOLUME 85.5 fL (80.0-100.0); MEAN PLATELET VOLUME 8.8 fL (7.4-11.0); MONOCYTES # (AUTO) 0.7 x10^3/uL (0.3-0.8); NEUTROPHILS # (AUTO) 6.1 x10^3/uL (2.2-4.8); NEUTROPHILS % (AUTO) 73.9 % (42.0-75.0); PLATELET COUNT 274 X10^3/uL (150.0-450.0); RED BLOOD COUNT 3.73 X10^6/uL (4.7-6.0); RED CELL DISTRIBUTION WIDTH 14.8 % (11.6-16.5); WHITE BLOOD COUNT 8.2 X10^3/uL (3.6-10.0)
[2018-12-13 05:31] LABS: ALBUMIN 2.8 g/dL (3.4-5.0); CALCIUM 8.7 mg/dL (8.5-10.1); CARBON DIOXIDE 31.1 mmol/L (21-32); COR CA(FOR HYPOALB) 9.7 mg/dL (8.5-10.1); CREATININE 1.65 mg/dL (0.70-1.30); TOTAL PROTEIN 6.1 g/dL (6.4-8.2)
[2018-12-13] MEDS: HumuLIN R SUBCUT PRN (06:06)
[2018-12-13] MEDS: NS 1000 ML 1,000 ML IV SCH (06:08)
[2018-12-13 08:02] VITALS: BP 160/72
[2018-12-13] MEDS: BENICAR TAB 40 MG PO SCH (08:16)
[2018-12-13] MEDS: NORMODYNE TAB 100 MG PO SCH (08:16)
[2018-12-13] MEDS: NORVASC TAB 10 MG PO SCH (08:17)
[2018-12-13] MEDS: SYNTHROID 100 mcg TAB PO SCH (08:17)
[2018-12-13] MEDS: EFFEXOR TAB 50 MG (BID DOSING) PO SCH (08:19)
[2018-12-13] MEDS: PATIENT'S HOME MEDICATION (Mycophenolate Mofetil [Mycophenolate Mofetil] 500 MG) PO SCH (08:19)
[2018-12-13] MEDS: ASPIRIN EC 81 MG PO SCH (08:19)
[2018-12-13] MEDS: INSULIN DEGLUDEC 30 UNIT subcut SCH (08:22)
[2018-12-13] MEDS: MILK OF MAGNESIA PO SCH (08:23)
[2018-12-13] MEDS: MIRALAX POWDER (1 DOSE 17 G) PO SCH (08:24)
== END 2018-12-13 13:10 | disposition home or self-care (01) | DRG 392 ==
LOC: MED/SURG
PROVIDERS: ADMIT Internal Medicine; ATTEND Internal Medicine
DX: N17.8 Other acute kidney failure; I12.9 Hypertensive chronic kidney disease with stage 1 through stage 4 chronic kidney disease, or unspecified chronic kidney disease; K59.09 Other constipation; N18.3 Chronic kidney disease, stage 3 (moderate); R94.4 Abnormal results of kidney function studies; R55 Syncope and collapse; E11.65 Type 2 diabetes mellitus with hyperglycemia; M32.9 Systemic lupus erythematosus, unspecified
CPT/HCPCS: 36415; 74000; 74018; 80053; 81001; 82150; 83690; 85025; 93306; 94760; A4216; A4222; Q0177; G0378; J1815; J2405; J7030; J7512

== ENCOUNTER 2021-09-07 14:09 | Inpatient (IN) ==
[2021-09-07] MEDS ORDERED: NS 1,000 ML IV 1,000 ML IV ONE (14:28)
[2021-09-07] MEDS ORDERED: NS 1,000 ML IV 1,000 ML ONE (14:34)
--- NOTE | 2021-09-07 14:35 | DR.DIZZY ---
HPI Time seen Time Seen by Provider: 09/07/21 14:28 Complaint Chief Complaint Doctor Comments: 71 y/o male presents with generalized weakness over the past 2 weeks. Had removal of 3 toes, left foot, in May. Has been undergoing physical therapy at home. Usually transfers from bed/couch to wheelch air. Has been weaker last 2 weeks, falling frequently. C/o neck and low back pain. Pain is sharp, worse of the low back. Fairly constant, worse with moving, nothing makes it better. Denies recent illness - no fever, chills, cough, dyspnea, N/V, bowel or bladder complaints. Legs feel weak in general. Has had abrasions, skin tears from falls. Denies headache, LOC. Chief Complaint:: Patient arrives to ED via POV, c/o weakness that has been worsening x2 weeks, frequent falls w/multiple skin tears all over, poor oral intake. Pt states he feels dehydrated, mucous membranes moist but has poor skin turgor. Pt has some confusion regarding events of last few days. COVID-19 Coronavirus risk:travel/contact w/high risk person: No Has patient experienced Coronavirus symptoms: No Source History Provided: Patient and Significant Other Mode of Arrival Mode of Arrival: Stretcher Timing Onset of Chief Complaint: 08/24/21 Symptom Onset: Known Onset of Symptoms Start Date: 08/24/21 Location of Weakness Weakness Location: Generalized Context Stroke Symptoms: Dizziness Associated signs and symptoms Associated Signs and Symptoms: Imbalance, Weak and Other PMH PMH Past Medical History: Yes Past Medical History: Angina, Arthritis, Diabetes, Gout, Hypertension and Renal Disease Past Surgical History: Yes Family History History of Family Medical Conditions: Yes Family Medical History: Diabetes Mellitus, Coronary Artery Disease and Hypertension Social History Alcohol Use: None Do you use any recreational Drugs:: No Lives With: Spouse Lives Where: Home Travel Risk Coronavirus risk:travel/contact w/high risk person: No Has patient experienced Coronavirus symptoms: No Infectious screening In the last 2 months have you had wt loss of >10#?: NO Have you had fever, night sweats or hemotysis?: No Have you traveled outside the country in the last 6 months?: No Isolation: Standard ROS Review of Systems Constitutional: Malaise, Weakness and Fatigue Eyes: No Symptoms Reported ENTM: No Symptoms Reported Respiratoy: No Symptoms Reported Cardiovascular: No Symptoms Reported Gastrointestinal/Abdominal: No Symptoms Reported Genitourinary: No Symptoms Reported Neurological: Weakness, Dizziness and Problems Walking Musculoskeletal: Back Pain, Neck and Leg Integumentary: Bruises Hematologic/Lymphatic: No Symptoms Reported Psychiatric: No Symptoms Reported All Other Systems: Reviewed and Negative PE Vital Signs Vitals: Temperature 97.9 F Pulse Rate 67 Respiratory Rate 20 Blood Pressure [Right Arm] 102/54 Blood Pressure 221/100 O2 Sat by Pulse Oximetry 95 General Limitations: No Limitations General Appearance: Alert and In No Apparent Distress Head Head Exam: Normal Inspection, Atraumatic and Normocephalic Eyes Eye exam: Normal Appearance, PERRL and EOMI ENT ENT Exam: Mucous Membranes Moist Neck Neck Exam: Tenderness (paracervical muscles, + discomfort with ROM.) Chest Chest Inspection: Normal Inspection Respiratory Respiratory Exam: Normal Lung Sounds Bilat; negative Accessory Muscle Use and Respiratory Distress Respiratory Exam: Bilateral: Clear to Auscultation Cardiovascular Cardiovascular Exam: Regular Rate, Normal Rhythm and Normal Heart Sounds Abdominal Exam Abdominal Exam: Normal Inspection, Normal Bowel Sounds and Soft; negative Tenderness Extremeties Extremities Exam: Other (lower exts with multiple superficial skin tears, abrasions. No significant edema. ) Back Back Exam: Tenderness (lumbar region.) Neurologic Neurological Exam: Alert, Oriented X3 and CN II-XII Intact; negative Motor Sensory Deficit MDM Differential Diagnosis Differential Diagnosis: Dehydration and Electrolyte disorder Differential Diagnosis Comment: DDD, fractures COURSE Treatment Treatment: 71 y/o male presents for evaluation. + falling frequently, getting weaker past 2 weeks. C/o low back, neck pain. W/u initiated. PT given IV fluids, IV analgesia. 1700 - labs show probable worsening of chronic renal insufficincy. Labs otherwise acceptable. CT studies - lumbar CT with multiple R transverse process fractures. Pt with generalized weakness, acute on chronic kidney trauma, and multiple R lateral process fractures. Discussed with his covering attending, Dr Spann, will admit for further hydration and pain control. ROR Labs Reviewed Laboratory Results Reviewed?: Yes Result Diagrams: 09/07/21 14:35 09/07/21 14:35 Laboratory: WBC 9.1 X10^3/uL (3.6-10.0) 09/07/21 14:35 RBC 4.99 X10^6/uL (4.7-6.0) 09/07/21 14:35 Hgb 14.7 g/dL (13.5-18.0) 09/07/21 14:35 Hct 44.9 % (42.0-54.0) 09/07/21 14:35 MCV 89.8 fL (80.0-100.0) 09/07/21 14:35 MCH 29.5 pg (27.0-34.0) 09/07/21 14:35 MCHC 32.8 g/dL (33.0-35.0) L 09/07/21 14:35 RDW 15.9 % (11.6-16.5) 09/07/21 14:35 Plt Count 279 X10^3/uL (150.0-450.0) 09/07/21 14:35 MPV 9.5 fL (7.4-11.0) 09/07/21 14:35 Neut % (Auto) 79.6 % (42.0-75.0) H 09/07/21 14:35 Lymph % (Auto) 10.5 % (21.0-51.0) L 09/07/21 14:35 [place] % (Auto) 8.3 % (0.0-13.0) 09/07/21 14:35 Eos % (Auto) 0.7 % (0.9-2.9) L 09/07/21 14:35 Baso % (Auto) 0.9 % (0.2-1.0) 09/07/21 14:35 Neut # (Auto) 7.2 x10^3/uL (2.2-4.8) H 09/07/21 14:35 Lymph # (Auto) 1.0 X10^3/uL (1.3-2.9) L 09/07/21 14:35 [place] # (Auto) 0.8 x10^3/uL (0.3-0.8) 09/07/21 14:35 Eos # (Auto) 0.1 x10^3/uL (0.0-0.2) 09/07/21 14:35 Baso # (Auto) 0.1 X10^3/uL (0.0-0.1) 09/07/21 14:35 Absolute Nucleated RBC 0.2 /100WBC 09/07/21 14:35 Sodium 141 mmol/L (136-145) 09/07/21 14:35 Corrected Sodium 143 mmol/L (136-145) 09/07/21 14:35 Potassium 4.9 mmol/L (3.5-5.1) 09/07/21 14:35 Chloride 101 mmol/L (98-107) 09/07/21 14:35 Carbon Dioxide 28.3 mmol/L (21-32) 09/07/21 14:35 BUN 42 mg/dL (7-18) H 09/07/21 14:35 Creatinine 3.11 mg/dL (0.70-1.30) H 09/07/21 14:35 Est GFR (MDRD) Af Amer 26 (>60) L 09/07/21 14:35 Est GFR (MDRD) Non-Af 21 (>60) L 09/07/21 14:35 Glucose 183 mg/dL (65-99) H 09/07/21 14:35 Lactic Acid 1.9 mmol/L (0.4-2.0) 09/07/21 14:35 Calcium 9.2 mg/dL (8.5-10.1) 09/07/21 14:35 Corrected Calcium 10.4 mg/dL (8.5-10.1) H 09/07/21 14:35 Total Bilirubin 0.30 mg/dL (0.2-1.0) 09/07/21 14:35 AST 22 Units/L (15-37) 09/07/21 14:35 ALT 16 Units/L (12-78) 09/07/21 14:35 Alkaline Phosphatase 109 Units/L (46-116) 09/07/21 14:35 Creatine Kinase 95 Units/L (39-308) 09/07/21 14:35 CK-MB (CK-2) 1.9 ng/mL (0-4.0) 09/07/21 14:35 CK/CKMB % Calc 2.0 % (<4) 09/07/21 14:35 Troponin I High Sens 31.7 ng/L (4.0-60.0) 09/07/21 14:35 Total Protein 6.6 g/dL (6.4-8.2) 09/07/21 14:35 Albumin 2.5 g/dL (3.4-5.0) L 09/07/21 14:35 Globulin 4.1 g/dL (2.5-4.5) 09/07/21 14:35 Albumin/Globulin Ratio 0.6 Ratio (1.1-2.1) L 09/07/21 14:35 Lipase 60 Units/L (73-393) L 09/07/21 14:35 SARS CoV-2 RNA Rapid SRINI Negative (NEGATIVE) 09/07/21 14:26 Other Results Comments: probable acute on chronic kidney injury. XRAY XRAY Interpreted by: Both X-ray Results: + mutiple fractures of R lateral transverse processes. EKG Rate: 70 [place]: Normal Rhythm: NSR Block: 1 Hypertrophy: None ST: Nonsp (+ prolonged QT interval) Opioid Opioid Risk Tool Age (Elian box if 16-45): No History of Preadolescent Sexual Abuse: No Total: 0 Total Score Risk Category: Low Risk Copyright: Cuello predicting aberrant behaviors Diagnosis Discharge Problem: General weakness Fracture of lumbar spine Qualifiers: Encounter type: initial encounter Lumbar vertebra fracture level: unspecified lumbar vertebra Fracture type: closed Fracture morphology: other fracture Qu alified Code(s): S32.008A - Other fracture of unspecified lumbar vertebra, initial encounter for closed fracture Qkonc-[id number] kidney injury Qualifiers: Acute renal failure type: unspecified Chronic kidney disease stage: unspecified stage Qualified Code(s): N17.9 - Acute kidney failure, unspecified
[2021-09-07 14:54] LABS: BASOPHILS # (AUTO) 0.1 X10^3/uL (0.0-0.1); BASOPHILS % (AUTO) 0.9 % (0.2-1.0); EOSINOPHILS # (AUTO) 0.1 x10^3/uL (0.0-0.2); EOSINOPHILS % (AUTO) 0.7 % (0.9-2.9); HEMATOCRIT 44.9 % (42.0-54.0); HEMOGLOBIN 14.7 g/dL (13.5-18.0); LYMPHOCYTES % (AUTO) 10.5 % (21.0-51.0); MEAN CORPUSCULAR HEMOGLOBIN 29.5 pg (27.0-34.0); MEAN CORPUSCULAR HGB CONC 32.8 g/dL (33.0-35.0); MEAN CORPUSCULAR VOLUME 89.8 fL (80.0-100.0); MEAN PLATELET VOLUME 9.5 fL (7.4-11.0); MONOCYTES # (AUTO) 0.8 x10^3/uL (0.3-0.8); MONOCYTES % (AUTO) 8.3 % (0.0-13.0); NEUTROPHILS # (AUTO) 7.2 x10^3/uL (2.2-4.8); NEUTROPHILS % (AUTO) 79.6 % (42.0-75.0); RED BLOOD COUNT 4.99 X10^6/uL (4.7-6.0); RED CELL DISTRIBUTION WIDTH 15.9 % (11.6-16.5); WHITE BLOOD COUNT 9.1 X10^3/uL (3.6-10.0)
[2021-09-07] MEDS ORDERED: DILAUDID INJ IVP ONE (15:06)
[2021-09-07 15:24] LABS: CALCIUM 9.2 mg/dL (8.5-10.1); CARBON DIOXIDE 28.3 mmol/L (21-32); CREATINE KINASE MB 1.9 ng/mL (0-4.0); CREATININE 3.11 mg/dL (0.70-1.30)
[2021-09-07 15:34] LABS: TOTAL PROTEIN 6.6 g/dL (6.4-8.2)
[2021-09-07] MEDS ORDERED: DILAUDID INJ ONE (15:36)
--- NOTE | 2021-09-07 15:47 | RAD ---
PROCEDURE: Chest X-ray 1 View .HISTORY: WEAKNESS .TECHNIQUE: AP view .COMPARISON: 03/15/2017.TECHNICAL QUALITY: Satisfactory .FINDINGS:Mild cardiomegaly.Mediastinum and hilar regions show no masses or lymphadenopathy. Tortuous aorta.Normal central vascularity .No pulmonary consolidation, masses, pleural fluid, or pneumothorax .No acute bony abnormality .IMPRESSION:1. Cardiomegaly.2. No other evidence of active disease.Electronically signed by: Tab Valdez (Sep 07, 2021 15:46:12)
--- NOTE | 2021-09-07 15:52 | CT ---
HISTORYComplaint of weakness that has been worsening x2 weeks, frequent fallsSTUDYBRAIN W/O CONCOMPARISONNoncontrast MRI brain from February 01, [address] brain from November 22, 2017TECHNIQUEAxial non-contrast images of the head were obtained with coronal and sagittal reformats provided.Radiation dose: 3320.80 mGy-cm total DLPFINDINGSNo abnormal areas of acute attenuation in the brain parenchyma.Haile-white differentiation remains intact.No intracranial, extra-axial, fluid collection.No hemorrhage.Periventricular chronic microvascular disease.No mass, mass effect or midline shift.Age related brain parenchymal global atrophy.No ventriculomegaly.No acute fracture.Sinuses are well aerated.Mastoid air cells are well aerated.Globes and intra-orbital contents are unremarkable.IMPRESSIONNo acute intracranial abnormality identified.Electronically signed by: Lamberto Sherman (Sep 07, 2021 15:51:36)
--- NOTE | 2021-09-07 15:58 | CT ---
PROCEDURE: CT Cervical Spine without Contrast .HISTORY: Increasing weakness with frequent falls for 2 weeks.TECHNIQUE: Axial images were performed through the cervical spine without the administration of IV contrast with multiplanar reformations . 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 Spinous processes are unremarkable.Mild median atlantoaxial joint arthrosis.Moderate atherosclerosis carotid bifurcations.IMPRESSION:1. No acute bony abnormality.2. 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 Cervical spondyloarthropathy.4. Moderate atherosclerosis.Electronically signed by: Tab Valdez (Sep 07, 2021 15:57:52)
--- NOTE | 2021-09-07 15:58 | CT ---
HISTORYc/o weakness that has been worsening x2 weeks, frequent fallsSTUDYLUMBAR SPINE W/O CONCOMPARISONNone availableTECHNIQUEMultiple axial images of the chest were obtained from the thoracic inlet to the upper abdomen after the administration of IV contrast. Dose reduction techniques including Automated Exposure Control (AEC) and adjustment of mA and kV were utilized.FINDINGSThere are 5 [id number]-ilevoxk lumbar type vertebral bodies with preservation of the lumbar lordosis. There is no evidence of acute compression fractures. There are acute fractures involving the right transverse processes of L1, L2 and in the right of O2hdlcv is bilateral bridging osteophytes in the superior sacroiliac joints. There is a focal lucency in the anterior aspect of S1 associated with an osteophyte formation. The presacral space is unremarkable. No adrenal masses in the included images. There is patchy bibasal atelectasis.No prevertebral hematoma no focal dilatation of the abdominal aorta there is motion [id number], T12-L1, L1-L2, demonstrate no focal abnormalitiesL2-L3 there is a broad-based disc osteophyte with moderate facet hypertrophy and mild narrowing of the spinal canalL3-L4 there is severe posterior element hypertrophy with a broad-based disc osteophyte and severe narrowing of the spinal canalThere is also severe narrowing of the spinal canal at L4-L5 with a suspected ganglion cyst in the right ligamentum flavum with peripheral calcification.L5-S1 there is severe facet hypertrophy, there is severe right neural foraminal stenosis and mild to moderate in the left.IMPRESSIONFractures of the spinous processes of L1-L2 and L4 in the right probably acute, no acute compression fractures..Severe narrowing of the spinal canal at L3-L4 and L4-L5 due to severe facet hypertrophy with suspected ligamentum flavum ganglia cyst in the right at L4-L5 with mass effect in the spinal canal.Focal lucency in the anterior aspect of the sacrum associated with osteophyte could represent a small incomplete fracture. Alignment is maintained.Electronically signed by: Margo Solares (Sep 07, 2021 15:56:55)
[2021-09-07 16:01] LABS: ALBUMIN 2.5 g/dL (3.4-5.0); COR CA(FOR HYPOALB) 10.4 mg/dL (8.5-10.1)
[2021-09-07] MEDS ORDERED: CATAPRES TAB 0.2 MG PO ONE (18:07)
[2021-09-07] MEDS ORDERED: NORMODYNE INJ 100 MG VIAL IVP ONE (18:08)
[2021-09-07] MEDS ORDERED: CATAPRES TAB 0.2 MG ONE (18:15)
[2021-09-07] MEDS ORDERED: NORMODYNE INJ 100 MG VIAL ONE (18:46)
[2021-09-07] MEDS ORDERED: D5 1/2 NS 1,000 ML 1,000 ML IV ONE (21:36)
[2021-09-07] MEDS: D5 1/2 NS 1,000 ML 1,000 ML IV SCH (22:27)
[2021-09-07] MEDS ORDERED: EFFEXOR TAB 50 MG (BID DOSING) PO ONE (22:36)
[2021-09-07] MEDS: COLACE CAP 100 MG PO SCH (22:37)
[2021-09-07] MEDS: AMBIEN PO SCH (22:37)
[2021-09-07] MEDS: NEURONTIN CAP 300 MG PO SCH (22:37)
[2021-09-07] MEDS: KLONOPIN TAB 1 MG PO PRN (22:37)
[2021-09-07] MEDS: PERCOCET TAB 5/325 MG PO PRN (22:38)
[2021-09-07] MEDS: ZANAFLEX PO PRN (22:44)
[2021-09-07] MEDS ORDERED: NYSTATIN POWDER ONE (23:58)
[2021-09-08] MEDS: EFFEXOR TAB 50 MG (BID DOSING) PO SCH ×2 (01:16→20:32)
[2021-09-08] MEDS: MYCOPHENOLATE MOFETIL 500 MG PO SCH ×3 (01:16→20:31)
[2021-09-08] MEDS: NEURONTIN CAP 300 MG PO SCH ×3 (06:00→21:05)
[2021-09-08 06:09] LABS: BILIRUBIN,URINE NEGATIVE (NEGATIVE); BLOOD/HEMOGLOBIN,URINE 2+ (NEGATIVE); GLUCOSE, URINE 1+ (NEGATIVE); KETONES,URINE NEGATIVE (NEGATIVE); LEUKOCYTE ESTERASE ,URINE NEGATIVE (NEGATIVE); NITRITES,URINE NEGATIVE (NEGATIVE); PROTEIN,URINE 4+ (NEGATIVE); UROBILINOGEN,URINE NORMAL (NORMAL)
[2021-09-08 06:17] LABS: APPEARANCE,URINE SLIGHTLY HAZY (CLEAR); BACTERIA,URINE TRACE /HPF (NEGATIVE); COLOR,URINE YELLOW (YELLOW); SQUAMOUS EPITHELIAL CELL,UR RARE /HPF (NEGATIVE)
[2021-09-08 06:49] LABS: BASOPHILS # (AUTO) 0.1 X10^3/uL (0.0-0.1); BASOPHILS % (AUTO) 1.2 % (0.2-1.0); EOSINOPHILS # (AUTO) 0.3 x10^3/uL (0.0-0.2); EOSINOPHILS % (AUTO) 3.6 % (0.9-2.9); HEMATOCRIT 41.7 % (42.0-54.0); HEMOGLOBIN 13.5 g/dL (13.5-18.0); LYMPHOCYTES # (AUTO) 0.9 X10^3/uL (1.3-2.9); LYMPHOCYTES % (AUTO) 12.6 % (21.0-51.0); MEAN CORPUSCULAR HEMOGLOBIN 29.6 pg (27.0-34.0); MEAN CORPUSCULAR HGB CONC 32.4 g/dL (33.0-35.0); MEAN CORPUSCULAR VOLUME 91.3 fL (80.0-100.0); MEAN PLATELET VOLUME 9.2 fL (7.4-11.0); MONOCYTES # (AUTO) 0.9 x10^3/uL (0.3-0.8); NEUTROPHILS # (AUTO) 5.1 x10^3/uL (2.2-4.8); NEUTROPHILS % (AUTO) 69.6 % (42.0-75.0); RED BLOOD COUNT 4.57 X10^6/uL (4.7-6.0); RED CELL DISTRIBUTION WIDTH 15.7 % (11.6-16.5); WHITE BLOOD COUNT 7.3 X10^3/uL (3.6-10.0)
[2021-09-08 07:08] LABS: ALBUMIN 2.2 g/dL (3.4-5.0); CALCIUM 8.7 mg/dL (8.5-10.1); COR CA(FOR HYPOALB) 10.1 mg/dL (8.5-10.1); CREATININE 3.12 mg/dL (0.70-1.30); TOTAL PROTEIN 6.1 g/dL (6.4-8.2)
[2021-09-08] MEDS: D5 1/2 NS 1,000 ML 1,000 ML IV SCH ×2 (07:22→08:56)
[2021-09-08] MEDS: COLACE CAP 100 MG PO SCH ×2 (08:57→20:32)
[2021-09-08] MEDS: SYNTHROID 125 mcg TAB PO SCH (08:57)
[2021-09-08] MEDS: MIRALAX POWDER (1 DOSE 17 G) PO SCH (08:57)
[2021-09-08] MEDS: NYSTATIN POWDER TOP SCH ×2 (08:58→20:32)
[2021-09-08] MEDS: LOPRESSOR TAB 25 MG PO SCH (08:58)
[2021-09-08] MEDS ORDERED: INSULIN DEGLUDEC 120 UNIT SUBCUT SCH (09:00)
[2021-09-08] MEDS ORDERED: LASIX PO SCH (09:00)
[2021-09-08] MEDS: LOVENOX INJ 40 MG SYR SC SCH (10:23)
--- NOTE | 2021-09-08 10:53 | DR.H&P ---
H&P - History & Physical for Day of: H&P Date: 09/07/21 - Chief Complaint Chief Complaint: WEAKNESS, FREQUENT FALLS, LOWER BACK PAIN, NECK PAIN, DECREASED ORAL INTAKE, CONFUSION - History of Present Illness History of Present Illness: IS A 71 YEAR OLD PATIENT OF OURS. HE PRESENTED TO THE ER WITH COMPLAINTS OF SEVERE WEAKNESS, FREQUENT FALLS, LOWER BACK PAIN, NECK PAIN, DECREASED ORAL INTAKE, AND CONFUSION. SYMPTOMS HAVE BEEN PRESENT AND WORSENING FOR THE PAST TWO WEEKS. HE DESCRIBES BACK AND NECK PAIN DULL. HE RATES LOWER BACK PAIN A 6/10. HE RATES NECK PAIN A 3/10. PAIN IS WORSE WITH ACTIVITY. HE REPORTS UNSTEDY GAIT SINCE HAVING 3 TOES REMOVED FROM HIS LEFT FOOT IN MAY. HE HAS BEEN UNDERGOING PHYSICAL THERAPY AT HOME. HE REPORTS BEING UNABLE TO STAND OR BEAR WEIGHT ON HIS LEGS FOR ANY EXTENDED PERIOD OF TIME. PMH INCLUDES CAD, CARDIAC ARRHYTHMIA, HTN, A-FIB, COPD, LUPUS, RENAL DISEASE, DM II, HYPOTHYROIDISM, ANEMIA, ANXIETY, DEPRESSION, TONSILLECTOMY, COLON RESECTION DUE TO COLON CANCER, ADENOIDECTOMY, ORTHO SURGERY. ON ARRIVAL, PATIENT IS NOTED TO HAVE MULTIPLE SKIN TEARS. DECREASED SKIN TURGOR NOTED. HIS VITALS WERE 97.9-75-26-94%-197/94. LABS WERE OBTAINED. WBC 9.1, HGB 14.7, HCT 44.9, SODIUM 141, POTASSIUM 4.9, BUN 42, CREATININE 3.11, GLUCOSE 183, CALCIUM 9.2, AST 22, ALT 16, ALK PHOS 109, TOTAL PROTEIN 6.6, ALBUMIN 2.5, LACTIC ACID 1.9. BLOOD CULTURES WERE SET UP. A WOUND CULTURE OF DRAINING WOUND TO THE LEFT SMALL TOE WAS SET UP. CHEST XRAY WAS OBTAINED AND REVEALED: 1. Cardiomegaly. 2. No other evidence of active disease. EKG REVEALED: SINUS OR ECTOPIC ATRIAL RHYTHM WITH HR 70. A BRAIN CT WAS OBTAINED AND REVEALED: NO ACUTE INTRACRANIAL ABNORMALITY IDENTIFIED. CERVICAL SPINE CT WITHOUT CONTRAST OBTAINED AND REVEALED: 1. No acute bony abnormality. 2. 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 3. Cervical spondyloarthropathy. 4. Moderate atherosclerosis. A LUMBAR SPINE CT WITHOUT CONTRAST WAS OBTAINED AND REVEALED: Fractures of the spinous processes of L1-L2 and L4 in the right probably acute, no acute compression fractures. Severe narrowing of the spinal canal at L3-L4 and L4-L5 due to severe facet hypertrophy with suspected ligamentum flavum ganglia cyst in the right at L4-L5 with mass effect in the spinal canal. Focal lucency in the anterior aspect of the sacrum associated with osteophyte could represent a small incomplete fracture. Alignment is maintained. IN THE ER, HE WAS GIVEN A NORMAL SALINE BOLUS, DILAUDID 1MG IV X 1 DOSE, CATAPRES 0.2 MG PO X 1, LABETALOL 100MG IV X 1. BLOOD PRESSURE DECREASED TO 162/78. A COON CATHETER WAS INSERTED DUE TO IMMOBILITY AND ACCURATE MEASUREMENT OF OUTPUT. PATIENT WAS ADMITTED TO THE HOSPITAL OBSERVATION STATUS FOR FURTHER EVALUATION AND TREATMENT OF MULTIPLE LUMBAR FX, ACUTE ON CHRONIC KIDNEY INJURY, HYPERTENSION, GENERALIZED WEAKNESS. HE WAS STARTED ON NORMAL SALINE AT 100 ML/HR, DILAUDID 1MG IV Q4H PRN, PERCOCET 5/325MG PO Q4H PRN, LOVENOX 40MC SC DAILY, OTBS ACHS, HUMULIN R SLIDING SCALE. HIS HOME MEDICATIONS OF KLONOPIN, COLACE, NEURONTIN, SYNTHROID, LOPRESSOR, MIRALAX, ZANAFLEX, EFFEXOR, AND AMBIEN WERE RESUMED. WE WILL HAVE PHYSICAL AND OCCUPATIONAL THERAPY EVALUATE PATIENT. OTHERWISE, WE PLAN TO FOLLOW UP WITH AM LABS AND CONTINUE TO MONITOR. TIME SPENT ON CLINICAL ASSESSMENT, REVIEWING LABS AND IMAGING, DECISION MAKING, AND DOCUMENTATION GREATER THAN 75 MINUTES. - Past Medical History Past Medical History: Angina, Hypertension, Diabetes, Renal Disease, Arthritis, Gout - Past Surgical History Surgical History: Ortho Surgery, Tonsillectomy - Family History Family Medical History: Diabetes Mellitus, Cancer, Coronary Artery Disease, Hypertension - Social History Does patient currently use any type of tobacco product: No Alcohol Use: None - Medications Home Medications: codeine Allergy (Verified 01/16/20 10:52) hydralazine Allergy (Verified 01/16/20 10:52) CONTINUE taking the following medications allopurinol 100 mg PO DAILY 09/07/21 [History] clonidine 0.3 mg TOPICAL WEEKLY 09/07/21 [History] gabapentin 300 mg PO TID 09/07/21 [History] insulin degludec [Tresiba FlexTouch U-100] 120 units SUBCUT DAILY 09/07/21 [His tory] levothyroxine 125 mcg PO DAILY 09/07/21 [History] metoprolol tartrate 25 mg PO DAILY 09/07/21 [History] mycophenolate mofetil [CellCept] 500 mg PO BID 09/07/21 [History] oxycodone-acetaminophen [Percocet] 1 tab PO Q6H PRN 09/07/21 [History] polyethylene glycol 3350 [Miralax] 17 g PO DAILY 09/07/21 [History] ranitidine HCl [Zantac] 150 mg PO BID 09/07/21 [History] zolpidem 10 mg PO HS 09/07/21 [History] - Review of Systems Constitutional: See HPI, Weakness Eyes: No Symptoms Reported ENT: No Symptoms Reported Respiratory: SOB with Excertion Cardiovascular: No Symptoms Reported Gastrointestinal: No Symptoms Reported Genitourinary: No Symptoms Reported Musculoskeletal: See HPI, Back Pain, Neck Pain Skin: See HPI, Bruising, Wound (MULTIPLE SKIN TEARS, DRAINING WOUND TO LEFT SMALL TOE ) Neurological: Weakness, Confusion - Physical Exam Vital Signs: Temperature 97.8 F Pulse Rate [Left] 67 Pulse Rate 67 Respiratory Rate 20 Blood Pressure [Right Arm] 144/91 Blood Pressure 162/78 O2 Sat by Pulse Oximetry 98 Oriented: Time, Person, Place Eyes: Normal Ear: Normal Nose: Normal Throat: Normal Respiratory: Diminished Throughout Cardiovascular: Normal : Normal Auscultation: Bowel Sounds: Normal Palpation: Normal Tenderness: Normal Skin: Wound (MULTIPLE SKIN TEARS SCATTERED OVER BODY, SCABBED OVER WOUNDS TO [place] LEFT FOOT ), Bruising Musculoskeletal: Back:Lumbar, Tender Psychiatric: Normal Mood Description: Calm Affect: Normal Speech Pattern: Clear - Assessment/Plan (1) Fracture of lumbar spine Qualifiers: Encounter type: initial encounter Lumbar vertebra fracture level: unspecified lumbar vertebra Fracture type: closed Fracture morphology: other fracture Qualified Code(s): S32.008A - Other fracture of unspecified lumbar vertebra, initial encounter for closed fracture Status: Acute Plan: ADMIT, PT/OT, NORMAL SALINE AT 100 ML/HR, DILAUDID 1MG IV Q4H PRN, PERCOCET 5/325MG PO Q4H PRN, LOVENOX 40MC SC DAILY, OTBS ACHS, HUMULIN R SLIDING SCALE. RESUME HOME MEDS (2) Isvlf-nn-bfunjch kidney injury Qualifiers: Acute renal failure type: unspecified Chronic kidney disease stage: unspecified stage Qualified Code(s): N17.9 - Acute kidney failure, unspecified; N18.9 - Chronic kidney disease, unspecified Status: Acute (3) General weakness Status: Acute (4) Hypertension Qualifiers: Hypertension type: primary hypertension Qualified Code(s): I10 - Essential (primary) hypertension Status: Acute - Allergies Allergies/Adverse Reactions: Allergies Allergy/AdvReac Type Severity Reaction Status Date / Time codeine Allergy Verified 01/16/20 10:52 hydralazine Allergy Verified 01/16/20 10:52
[2021-09-08] MEDS: NovoLIN R (or HumuLIN R) SUBCUT PRN ×3 (11:16→21:06)
[2021-09-08] MEDS: NS 1,000 ML IV 1,000 ML IV SCH ×3 (12:06→22:22)
[2021-09-08] MEDS: ZANAFLEX PO PRN (12:27)
[2021-09-08 12:47] VITALS: BMI 41.6
[2021-09-08] MEDS: PERCOCET TAB 5/325 MG PO PRN ×2 (16:14→22:06)
[2021-09-08] MEDS: NORMODYNE INJ 20 MG VIAL IV PRN ×2 (16:38→21:53)
[2021-09-08] MEDS: DILAUDID INJ IVP PRN (17:52)
[2021-09-08] MEDS: AMBIEN PO SCH (20:32)
[2021-09-08] MEDS: SNACK - Diabetic Appropriate PO SCH (20:32)
[2021-09-08] MEDS: KLONOPIN TAB 1 MG PO PRN (21:06)
[2021-09-09] MEDS: DILAUDID INJ IVP PRN (00:38)
[2021-09-09] MEDS: NS 1,000 ML IV 1,000 ML IV SCH ×3 (03:01→20:54)
[2021-09-09] MEDS: NORMODYNE INJ 20 MG VIAL IV PRN ×3 (04:34→21:23)
[2021-09-09] MEDS: PERCOCET TAB 5/325 MG PO PRN ×3 (05:27→20:57)
[2021-09-09] MEDS: NEURONTIN CAP 300 MG PO SCH ×3 (05:27→21:41)
[2021-09-09 06:44] LABS: BASOPHILS # (AUTO) 0.1 X10^3/uL (0.0-0.1); BASOPHILS % (AUTO) 0.9 % (0.2-1.0); EOSINOPHILS # (AUTO) 0.2 x10^3/uL (0.0-0.2); EOSINOPHILS % (AUTO) 4.2 % (0.9-2.9); HEMATOCRIT 37.4 % (42.0-54.0); HEMOGLOBIN 12.2 g/dL (13.5-18.0); LYMPHOCYTES # (AUTO) 0.8 X10^3/uL (1.3-2.9); LYMPHOCYTES % (AUTO) 14.1 % (21.0-51.0); MEAN CORPUSCULAR HEMOGLOBIN 29.9 pg (27.0-34.0); MEAN CORPUSCULAR HGB CONC 32.5 g/dL (33.0-35.0); MEAN CORPUSCULAR VOLUME 91.9 fL (80.0-100.0); MEAN PLATELET VOLUME 9.3 fL (7.4-11.0); MONOCYTES # (AUTO) 0.8 x10^3/uL (0.3-0.8); NEUTROPHILS % (AUTO) 66.8 % (42.0-75.0); RED BLOOD COUNT 4.07 X10^6/uL (4.7-6.0); RED CELL DISTRIBUTION WIDTH 15.5 % (11.6-16.5); WHITE BLOOD COUNT 5.9 X10^3/uL (3.6-10.0)
[2021-09-09 07:02] LABS: CALCIUM 8.2 mg/dL (8.5-10.1); CARBON DIOXIDE 30.8 mmol/L (21-32); COR CA(FOR HYPOALB) 9.8 mg/dL (8.5-10.1); CREATININE 2.83 mg/dL (0.70-1.30); TOTAL PROTEIN 5.5 g/dL (6.4-8.2)
[2021-09-09] MEDS: COLACE CAP 100 MG PO SCH ×2 (10:22→20:55)
[2021-09-09] MEDS: LOVENOX INJ 40 MG SYR SC SCH (10:22)
[2021-09-09] MEDS: LOPRESSOR TAB 25 MG PO SCH (10:22)
[2021-09-09] MEDS: ZOSYN VIAL 3.375 GRAMS 3.375 G in NS 100 ML IV 100 ML IV SCH ×3 (10:23→21:41)
[2021-09-09] MEDS: MIRALAX POWDER (1 DOSE 17 G) PO SCH (10:23)
[2021-09-09] MEDS: NYSTATIN POWDER TOP SCH ×2 (10:23→22:09)
[2021-09-09] MEDS: SYNTHROID 125 mcg TAB PO SCH (10:23)
[2021-09-09] MEDS: MYCOPHENOLATE MOFETIL 500 MG PO SCH ×2 (10:24→21:40)
[2021-09-09] MEDS: GENTAMICIN TOPICAL CRM TOP SCH ×2 (10:25→22:09)
--- NOTE | 2021-09-09 11:22 | PCM.PROG ---
Progress Note - Progress Note for Day of Date of Exam: 09/09/21 - Subjective Subjective: WAS ADMITTED FOR MULTIPLE LUMBAR FX, ACUTE ON CHRONIC KIDNEY INJURY, BILATERAL LOWER EXTREMITY CELLULITIS, AND GENERALIZED WEAKNESS. HE HAS A HISTORY OF HTN, MORBID OBESITY, AND DM II. TODAY, HE IS ALERT AND ORIENTED, LYING IN BED ON MORNING ROUNDS. HE CONTINUES WITH LOW BACK PAIN AND WEAKNESS TODAY. PAIN IS SLIGHTLY BETTER WITH PAIN MEDICATIONS TODAY. ON EXAMINATION, HEART IS REGULAR IN RATE AND RHYTHM. BILATERAL LUNGS NOTED WITH DIMINISHED LUNG SOUNDS THROUGHOUT. ABDOMEN IS OBESE, SOFT, AND NON-TENDER WITH NORMAL BOWEL SOUNDS NOTED IN ALL QUADRANTS. THERE ARE MULTIPLE OPEN AND SCABBED WOUNDS NOTED TO BILATERAL LOWER EXTREMITIES. SCATTERED BRUISING AND SKIN TEARS ALSO NOTED. THERE IS SEROSANGUINOUS DRAINAGE NOTED FROM SOME WOUND ON BILATERAL LEGS. THERE IS AN OPEN WOUND TO THE LEFT HEEL. HIS VITALS THIS MORNING ARE 98.6-71-22-94%-190/88. LABS WERE OBTAINED. ABNORMAL LAB VALUES INCLUDE THE FOLLOWING: RBC 4.07, HGB 12.2, HCT 37.4, BUN 37, CREATININE 2.83, GLUCOSE 175, C ALCIUM 8.2, TOTAL PROTEIN 5.5, ALBUMIN 2.0. BLOOD AND WOUND CULTURES ARE PENDING. HE IS CURRENTLY RECEIVING NORMAL SALINE AT 100 ML/HR, ZOSYN 3.375G IV TID, DILAUDID 1MG IV Q4H PRN, PERCOCET 5/325MG PO Q4H PRN, LOVENOX 40MC SC DAILY, OTBS ACHS, HUMULIN R SLIDING SCALE. HIS HOME MEDICATIONS OF KLONOPIN, COLACE, NEURONTIN, SYNTHROID, LOPRESSOR, MIRALAX, ZANAFLEX, EFFEXOR, AND AMBIEN WERE RESUMED. TODAY, WE WILL ADD GENTAMICIN CREAM TO LOWER EXTREMITY WOUNDS BID. WE WILL CONSULT FOR EVALUATION OF WOUNDS AND POSSIBLE DEBRIDEMENT. PHYSICAL THERAPY WILL WORK WITH PATIENT TODAY. OTHERWISE, WE PLAN TO FOLLOW UP WITH AM LABS AND CONTINUE TO MONITOR. TIME SPENT ON CLINICAL ASSESSMENT, REVIE WING LABS AND IMAGING, DECISION MAKING, AND DOCUMENTATION GREATER THAN 45 MINUTES. - Past Medical Family Social History Past Med/Fam/Surg Hx: No changes since H&P Allergies: Allergies codeine Allergy (Verified 01/16/20 10:52) hydralazine Allergy (Verified 01/16/20 10:52) - Review of Systems ROS: No change since H&P - Vital Signs and I&O's Vital Signs: Temperature 98.6 F Pulse Rate [Left] 71 Pulse Rate 67 Respiratory Rate 21 Blood Pressure [Left Arm] 148/67 Blood Pressure [Right Arm] 191/87 Blood Pressure 162/78 O2 Sat by Pulse Oximetry 94 Intake and Output: Intake & Output 09/06/21 09/07/21 09/08/21 09/09/21 11:59 11:59 11:59 11:59 Intake Total 1411 / 1411 3212 / 3212 Output Total 1000 / 1000 Balance 1411 / 1411 2212 / 2212 - Physical Exam Oriented: Time, Person, Place Eyes: Normal Ear: Normal Nose: Normal Throat: Normal Respiratory: Generalized, Diminished Cardiovascular: Normal : Normal Auscultation: Bowel Sounds: Normal Palpation: Normal Tenderness: Normal Skin: Wound (MULTIPLE SKIN TEARS SCATTERED OVER BODY, SCABBED OVER WOUNDS TO BILATERAL LEGS AND FEET ), Bruising Musculoskeletal: Back:Lumbar, Tender Psychiatric: Normal Mood Description: Calm Affect: Normal Speech Pattern: Clear, Appropriate - Laboratory and Diagnostics Result Diagrams: 09/09/21 05:25 09/09/21 05:25 Labs: 09/08/21 00:20 Toe - Left Little Wound Gram Stain - Final 09/08/21 00:20 Toe - Left Little Wound Culture - Preliminary Laboratory WBC 5.9 X10^3/uL (3.6-10.0) 09/09/21 05:25 RBC 4.07 X10^6/uL (4.7-6.0) L 09/09/21 05:25 Hgb 12.2 g/dL (13.5-18.0) L 09/09/21 05:25 Hct 37.4 % (42.0-54.0) L 09/09/21 05:25 MCV 91.9 fL (80.0-100.0) 09/09/21 05:25 MCH 29.9 pg (27.0-34.0) 09/09/21 05:25 MCHC 32.5 g/dL (33.0-35.0) L 09/09/21 05:25 RDW 15.5 % (11.6-16.5) 09/09/21 05:25 Plt Count 235 X10^3/uL (150.0-450.0) 09/09/21 05:25 MPV 9.3 fL (7.4-11.0) 09/09/21 05:25 Neut % (Auto) 66.8 % (42.0-75.0) 09/09/21 05:25 Lymph % (Auto) 14.1 % (21.0-51.0) L 09/09/21 05:25 [place] % (Auto) 14.0 % (0.0-13.0) H 09/09/21 05:25 Eos % (Auto) 4.2 % (0.9-2.9) H 09/09/21 05:25 Baso % (Auto) 0.9 % (0.2-1.0) 09/09/21 05:25 Neut # (Auto) 4.0 x10^3/uL (2.2-4.8) 09/09/21 05:25 Lymph # (Auto) 0.8 X10^3/uL (1.3-2.9) L 09/09/21 05:25 [place] # (Auto) 0.8 x10^3/uL (0.3-0.8) 09/09/21 05:25 Eos # (Auto) 0.2 x10^3/uL (0.0-0.2) 09/09/21 05:25 Baso # (Auto) 0.1 X10^3/uL (0.0-0.1) 09/09/21 05:25 Absolute Nucleated RBC 0.1 /100WBC 09/09/21 05:25 Sodium 143 mmol/L (136-145) 09/09/21 05:25 Corrected Sodium 145 mmol/L (136-145) 09/09/21 05:25 Potassium 4.4 mmol/L (3.5-5.1) 09/09/21 05:25 Chloride 105 mmol/L (98-107) 09/09/21 05:25 Carbon Dioxide 30.8 mmol/L (21-32) 09/09/21 05:25 BUN 37 mg/dL (7-18) H 09/09/21 05:25 Creatinine 2.83 mg/dL (0.70-1.30) H 09/09/21 05:25 Est GFR (MDRD) Af Amer 29 (>60) L 09/09/21 05:25 Est GFR (MDRD) Non-Af 24 (>60) L 09/09/21 05:25 Glucose 175 mg/dL (65-99) H 09/09/21 05:25 POC Glucose (mg/dL) 167 mg/dL (65-99) H 09/09/21 05:12 Hemoglobin A1c 6.5 % 09/08/21 06:23 Lactic Acid 1.9 mmol/L (0.4-2.0) 09/07/21 14:35 Calcium 8.2 mg/dL (8.5-10.1) L 09/09/21 05:25 Corrected Calcium 9.8 mg/dL (8.5-10.1) 09/09/21 05:25 Total Bilirubin 0.30 mg/dL (0.2-1.0) 09/09/21 05:25 AST 20 Units/L (15-37) 09/09/21 05:25 ALT 24 Units/L (12-78) 09/09/21 05:25 Alkaline Phosphatase 91 Units/L (46-116) 09/09/21 05:25 Creatine Kinase 95 Units/L (39-308) 09/07/21 14:35 CK-MB (CK-2) 1.9 ng/mL (0-4.0) 09/07/21 14:35 CK/CKMB % Calc 2.0 % (<4) 09/07/21 14:35 Troponin I High Sens 31.7 ng/L (4.0-60.0) 09/07/21 14:35 Total Protein 5.5 g/dL (6.4-8.2) L 09/09/21 05:25 Albumin 2.0 g/dL (3.4-5.0) L 09/09/21 05:25 Globulin 3.5 g/dL (2.5-4.5) 09/09/21 05:25 Albumin/Globulin Ratio 0.6 Ratio (1.1-2.1) L 09/09/21 05:25 Lipase 60 Units/L (73-393) L 09/07/21 14:35 Specimen Type Catherized urine 09/07/21 05:55 Urine Color Yellow (YELLOW) 09/07/21 05:55 Urine Appearance Slightly hazy (CLEAR) 09/07/21 05:55 Urine pH 5.0 (5.0 - 8.0) 09/07/21 05:55 Ur Specific [place] 1.020 (1.000-1.030) 09/07/21 05:55 Urine Protein 4+ (NEGATIVE) 09/07/21 05:55 Urine Glucose (UA) 1+ (NEGATIVE) 09/07/21 05:55 Urine Ketones Negative (NEGATIVE) 09/07/21 05:55 Urine Occult Blood 2+ (NEGATIVE) 09/07/21 05:55 Urine Nitrite Negative (NEGATIVE) 09/07/21 05:55 Urine Bilirubin Negative (NEGATIVE) 09/07/21 05:55 Urine Urobilinogen Normal (NORMAL) 09/07/21 05:55 Ur Leukocyte Esterase Negative (NEGATIVE) 09/07/21 05:55 Urine RBC 3-5 /HPF (0-3) A 09/07/21 05:55 Urine WBC 0-2 /HPF (0-5) 09/07/21 05:55 Ur Squamous Epith Cells Rare /HPF (NEGATIVE) 09/07/21 05:55 Amorphous Sediment 1+ /HPF (NEGATIVE) 09/07/21 05:55 Urine Bacteria Trace /HPF (NEGATIVE) 09/07/21 05:55 Ur Culture Indicated? No/not indicated 09/07/21 05:55 SARS CoV-2 RNA Rapid SRINI Negative (NEGATIVE) 09/07/21 14:26 - Plan (1) Fracture of lumbar spine Status: Acute Qualifiers: Encounter type: initial encounter Lumbar vertebra fracture level: unspecified lumbar vertebra Fracture type: closed Fracture morphology: other fracture Qualified Code(s): S32.008A - Other fracture of unspecified lumbar vertebra, initial encounter for closed fracture Plan: PT/OT, NORMAL SALINE AT 100 ML/HR, ZOSYN 3.375G IV TID, GENTAMICIN CREAM TO WOUNDS BID, DILAUDID 1MG IV Q4H PRN, PERCOCET 5/325MG PO Q4H PRN, LOVENOX 40MC SC DAILY, OTBS ACHS, HUMULIN R SLIDING SCALE. RESUME HOME MEDS (2) Cellulitis of both lower extremities Status: Acute (3) [id number]-[id number] kidney injury Status: Acute Qualifiers: Acute renal failure type: unspecified Chronic kidney disease stage: unspecified stage Qualified Code(s): N17.9 - Acute kidney failure, unspecified; N18.9 - Chronic kidney disease, unspecified (4) General weakness Status: Acute (5) Hypertension Status: Acute Qualifiers: Hypertension type: primary hypertension Qualified Code(s): I10 - Essential (primary) hypertension
[2021-09-09] MEDS: SNACK - Diabetic Appropriate PO SCH (20:54)
[2021-09-09] MEDS: AMBIEN PO SCH (20:54)
[2021-09-09] MEDS: EFFEXOR TAB 50 MG (BID DOSING) PO SCH (20:55)
[2021-09-09] MEDS: NovoLIN R (or HumuLIN R) SUBCUT PRN (20:56)
[2021-09-09] MEDS: KLONOPIN TAB 1 MG PO PRN (20:56)
[2021-09-10] MEDS: NS 1,000 ML IV 1,000 ML IV SCH ×3 (03:06→20:42)
[2021-09-10] MEDS: PERCOCET TAB 5/325 MG PO PRN ×2 (05:02→21:57)
[2021-09-10] MEDS: ZOSYN VIAL 3.375 GRAMS 3.375 G in NS 100 ML IV 100 ML IV SCH ×3 (05:02→21:55)
[2021-09-10] MEDS: NEURONTIN CAP 300 MG PO SCH ×2 (05:02→20:41)
[2021-09-10] MEDS: NovoLIN R (or HumuLIN R) SUBCUT PRN (05:44)
[2021-09-10 06:55] LABS: BASOPHILS # (AUTO) 0.1 X10^3/uL (0.0-0.1); EOSINOPHILS # (AUTO) 0.3 x10^3/uL (0.0-0.2); EOSINOPHILS % (AUTO) 3.9 % (0.9-2.9); HEMATOCRIT 37.2 % (42.0-54.0); HEMOGLOBIN 12.1 g/dL (13.5-18.0); LYMPHOCYTES # (AUTO) 0.6 X10^3/uL (1.3-2.9); LYMPHOCYTES % (AUTO) 9.1 % (21.0-51.0); MEAN CORPUSCULAR HEMOGLOBIN 29.7 pg (27.0-34.0); MEAN CORPUSCULAR HGB CONC 32.6 g/dL (33.0-35.0); MEAN CORPUSCULAR VOLUME 91.1 fL (80.0-100.0); MEAN PLATELET VOLUME 9.3 fL (7.4-11.0); MONOCYTES # (AUTO) 0.9 x10^3/uL (0.3-0.8); MONOCYTES % (AUTO) 12.8 % (0.0-13.0); NEUTROPHILS # (AUTO) 5.1 x10^3/uL (2.2-4.8); NEUTROPHILS % (AUTO) 73.2 % (42.0-75.0); RED BLOOD COUNT 4.08 X10^6/uL (4.7-6.0); RED CELL DISTRIBUTION WIDTH 15.6 % (11.6-16.5)
[2021-09-10 07:11] LABS: CALCIUM 8.2 mg/dL (8.5-10.1); CARBON DIOXIDE 28.7 mmol/L (21-32); CREATININE 2.84 mg/dL (0.70-1.30); TOTAL PROTEIN 5.8 g/dL (6.4-8.2)
[2021-09-10 07:18] LABS: ALBUMIN 1.9 g/dL (3.4-5.0); COR CA(FOR HYPOALB) 9.9 mg/dL (8.5-10.1)
[2021-09-10] MEDS: GENTAMICIN TOPICAL CRM TOP SCH ×2 (08:00→20:41)
[2021-09-10] MEDS: LOVENOX INJ 40 MG SYR SC SCH (08:00)
[2021-09-10] MEDS: LOPRESSOR TAB 25 MG PO SCH (08:00)
[2021-09-10] MEDS: COLACE CAP 100 MG PO SCH ×2 (08:00→20:40)
[2021-09-10] MEDS: MIRALAX POWDER (1 DOSE 17 G) PO SCH (08:01)
[2021-09-10] MEDS: NYSTATIN POWDER TOP SCH ×2 (08:01→20:41)
[2021-09-10] MEDS: MYCOPHENOLATE MOFETIL 500 MG PO SCH ×2 (08:01→20:48)
[2021-09-10] MEDS: SYNTHROID 125 mcg TAB PO SCH (08:02)
[2021-09-10] MEDS: NORMODYNE INJ 20 MG VIAL IV PRN ×4 (12:58→18:33)
[2021-09-10] MEDS: KLONOPIN TAB 1 MG PO PRN ×2 (13:22→18:32)
--- NOTE | 2021-09-10 14:07 | DR.PROGNOT ---
Hospital Progress Notes - Progress Note for Day of: Progress Note Date: 09/10/21 - Chief Complaint Chief Complaint: could not do the debridement because the Pt had breakfast . to reschedule for Monday before discharging to [facility] - Past Medical Family Social History Past Med/Fam/Surg Hx: No changes since H&P Allergies: Allergies codeine Allergy (Verified 01/16/20 10:52) hydralazine Allergy (Verified 01/16/20 10:52) - Review Of Systems ROS: No change since H&P - Vital Signs Vital Signs: Temperature 98.8 F Pulse Rate [Left] 88 Pulse Rate 67 Respiratory Rate 20 Blood Pressure [Left Arm] 239/100 Blood Pressure [Right Arm] 191/87 Blood Pressure 162/78 O2 Sat by Pulse Oximetry 98 - Physical Exam Oriented: Time, Person, Place Eyes: Normal Ear: Normal Nose: Normal Throat: Normal Respiratory: Generalized, Diminished Cardiovascular: Normal : Normal GI:Auscultation: Normal GI:Palpation: Normal GI: Tenderness: Normal Skin: Wound (MULTIPLE SKIN TEARS SCATTERED OVER BODY, SCABBED OVER WOUNDS TO BILATERAL LEGS AND FEET ), Bruising Musculoskeletal: Back:Lumbar, Tender Psychiatric: Normal Mood Description: Calm Affect: Normal Speech Pattern: Clear, Appropriate - Laboratory and Diagnostics Result Diagrams: 09/10/21 06:18 09/10/21 06:18 Labs: 09/09/21 18:35 Leg - Left Wound Culture - Preliminary 09/08/21 00:20 Toe - Left Little Wound Gram Stain - Final 09/08/21 00:20 Toe - Left Little Wound Culture - Final Proteus Mirabilis 09/07/21 14:35 Blood Blood Culture - Preliminary 09/07/21 14:28 Blood Blood Culture - Preliminary Laboratory WBC 7.0 X10^3/uL (3.6-10.0) 09/10/21 06:18 RBC 4.08 X10^6/uL (4.7-6.0) L 09/10/21 06:18 Hgb 12.1 g/dL (13.5-18.0) L 09/10/21 06:18 Hct 37.2 % (42.0-54.0) L 09/10/21 06:18 MCV 91.1 fL (80.0-100.0) 09/10/21 06:18 MCH 29.7 pg (27.0-34.0) 09/10/21 06:18 MCHC 32.6 g/dL (33.0-35.0) L 09/10/21 06:18 RDW 15.6 % (11.6-16.5) 09/10/21 06:18 Plt Count 226 X10^3/uL (150.0-450.0) 09/10/21 06:18 MPV 9.3 fL (7.4-11.0) 09/10/21 06:18 Neut % (Auto) 73.2 % (42.0-75.0) 09/10/21 06:18 Lymph % (Auto) 9.1 % (21.0-51.0) L 09/10/21 06:18 [place] % (Auto) 12.8 % (0.0-13.0) 09/10/21 06:18 Eos % (Auto) 3.9 % (0.9-2.9) H 09/10/21 06:18 Baso % (Auto) 1.0 % (0.2-1.0) 09/10/21 06:18 Neut # (Auto) 5.1 x10^3/uL (2.2-4.8) H 09/10/21 06:18 Lymph # (Auto) 0.6 X10^3/uL (1.3-2.9) L 09/10/21 06:18 [place] # (Auto) 0.9 x10^3/uL (0.3-0.8) H 09/10/21 06:18 Eos # (Auto) 0.3 x10^3/uL (0.0-0.2) H 09/10/21 06:18 Baso # (Auto) 0.1 X10^3/uL (0.0-0.1) 09/10/21 06:18 Absolute Nucleated RBC 0.1 /100WBC 09/10/21 06:18 Sodium 141 mmol/L (136-145) 09/10/21 06:18 Corrected Sodium 143 mmol/L (136-145) 09/10/21 06:18 Potassium 4.7 mmol/L (3.5-5.1) 09/10/21 06:18 Chloride 107 mmol/L (98-107) 09/10/21 06:18 Carbon Dioxide 28.7 mmol/L (21-32) 09/10/21 06:18 BUN 34 mg/dL (7-18) H 09/10/21 06:18 Creatinine 2.84 mg/dL (0.70-1.30) H 09/10/21 06:18 Est GFR (MDRD) Af Amer 29 (>60) L 09/10/21 06:18 Est GFR (MDRD) Non-Af 24 (>60) L 09/10/21 06:18 Glucose 202 mg/dL (65-99) H 09/10/21 06:18 POC Glucose (mg/dL) 187 mg/dL (65-99) H 09/10/21 12:25 Hemoglobin A1c 6.5 % 09/08/21 06:23 Lactic Acid 1.9 mmol/L (0.4-2.0) 09/07/21 14:35 Calcium 8.2 mg/dL (8.5-10.1) L 09/10/21 06:18 Corrected Calcium 9.9 mg/dL (8.5-10.1) 09/10/21 06:18 Total Bilirubin 0.30 mg/dL (0.2-1.0) 09/10/21 06:18 AST 18 Units/L (15-37) 09/10/21 06:18 ALT 23 Units/L (12-78) 09/10/21 06:18 Alkaline Phosphatase 90 Units/L (46-116) 09/10/21 06:18 Creatine Kinase 95 Units/L (39-308) 09/07/21 14:35 CK-MB (CK-2) 1.9 ng/mL (0-4.0) 09/07/21 14:35 CK/CKMB % Calc 2.0 % (<4) 09/07/21 14:35 Troponin I High Sens 31.7 ng/L (4.0-60.0) 09/07/21 14:35 Total Protein 5.8 g/dL (6.4-8.2) L 09/10/21 06:18 Albumin 1.9 g/dL (3.4-5.0) L 09/10/21 06:18 Globulin 3.9 g/dL (2.5-4.5) 09/10/21 06:18 Albumin/Globulin Ratio 0.5 Ratio (1.1-2.1) L 09/10/21 06:18 Lipase 60 Units/L (73-393) L 09/07/21 14:35 Specimen Type Catherized urine 09/07/21 05:55 Urine Color Yellow (YELLOW) 09/07/21 05:55 Urine Appearance Slightly hazy (CLEAR) 09/07/21 05:55 Urine pH 5.0 (5.0 - 8.0) 09/07/21 05:55 Ur Specific [place] 1.020 (1.000-1.030) 09/07/21 05:55 Urine Protein 4+ (NEGATIVE) 09/07/21 05:55 Urine Glucose (UA) 1+ (NEGATIVE) 09/07/21 05:55 Urine Ketones Negative (NEGATIVE) 09/07/21 05:55 Urine Occult Blood 2+ (NEGATIVE) 09/07/21 05:55 Urine Nitrite Negative (NEGATIVE) 09/07/21 05:55 Urine Bilirubin Negative (NEGATIVE) 09/07/21 05:55 Urine Urobilinogen Normal (NORMAL) 09/07/21 05:55 Ur Leukocyte Esterase Negative (NEGATIVE) 09/07/21 05:55 Urine RBC 3-5 /HPF (0-3) A 09/07/21 05:55 Urine WBC 0-2 /HPF (0-5) 09/07/21 05:55 Ur Squamous Epith Cells Rare /HPF (NEGATIVE) 09/07/21 05:55 Amorphous Sediment 1+ /HPF (NEGATIVE) 09/07/21 05:55 Urine Bacteria Trace /HPF (NEGATIVE) 09/07/21 05:55 Ur Culture Indicated? No/not indicated 09/07/21 05:55 SARS CoV-2 RNA Rapid SRINI Negative (NEGATIVE) 09/07/21 14:26 - Assessment and Plan 1: multiple decubitus ulcers of both lower extremities . for debridement on monday before d/c to [place] .. - Problem Patient Problems: Patient Problems Hypertension (Acute) I10 Fracture of lumbar spine (Acute) S32.009A General weakness (Acute) R53.1 Otibe-gu-slqbbdk kidney injury (Acute) N17.9, N18.9 Cellulitis of both lower extremities (Acute) L03.115, L03.116
[2021-09-10] MEDS: DILAUDID INJ IVP PRN ×2 (18:32→23:45)
[2021-09-10] MEDS ORDERED: NS 1,000 ML IV 1,000 ML ONE (19:39)
[2021-09-10] MEDS ORDERED: NEURONTIN CAP 300 MG ONE (19:39)
[2021-09-10] MEDS: EFFEXOR TAB 50 MG (BID DOSING) PO SCH (20:41)
[2021-09-10] MEDS: AMBIEN PO SCH (20:42)
[2021-09-10] MEDS: SNACK - Diabetic Appropriate PO SCH (20:42)
[2021-09-10] MEDS: ZANAFLEX PO PRN (20:49)
[2021-09-11] MEDS: NORMODYNE INJ 20 MG VIAL IV PRN ×2 (00:11→01:26)
[2021-09-11] MEDS: NS 1,000 ML IV 1,000 ML IV SCH ×3 (03:32→20:34)
[2021-09-11] MEDS: ZOSYN VIAL 3.375 GRAMS 3.375 G in NS 100 ML IV 100 ML IV SCH ×3 (05:14→21:01)
[2021-09-11 06:29] LABS: BASOPHILS # (AUTO) 0.1 X10^3/uL (0.0-0.1); BASOPHILS % (AUTO) 0.8 % (0.2-1.0); EOSINOPHILS # (AUTO) 0.3 x10^3/uL (0.0-0.2); EOSINOPHILS % (AUTO) 4.9 % (0.9-2.9); HEMOGLOBIN 12.5 g/dL (13.5-18.0); LYMPHOCYTES # (AUTO) 0.8 X10^3/uL (1.3-2.9); LYMPHOCYTES % (AUTO) 12.6 % (21.0-51.0); MEAN CORPUSCULAR HEMOGLOBIN 29.8 pg (27.0-34.0); MEAN CORPUSCULAR HGB CONC 32.1 g/dL (33.0-35.0); MONOCYTES # (AUTO) 0.9 x10^3/uL (0.3-0.8); MONOCYTES % (AUTO) 14.2 % (0.0-13.0); NEUTROPHILS # (AUTO) 4.1 x10^3/uL (2.2-4.8); NEUTROPHILS % (AUTO) 67.5 % (42.0-75.0); RED CELL DISTRIBUTION WIDTH 15.9 % (11.6-16.5); WHITE BLOOD COUNT 6.1 X10^3/uL (3.6-10.0)
[2021-09-11 06:51] LABS: CALCIUM 8.5 mg/dL (8.5-10.1); CARBON DIOXIDE 31.3 mmol/L (21-32); COR CA(FOR HYPOALB) 10.1 mg/dL (8.5-10.1); CREATININE 2.75 mg/dL (0.70-1.30); TOTAL PROTEIN 5.8 g/dL (6.4-8.2)
[2021-09-11] MEDS: GENTAMICIN TOPICAL CRM TOP SCH ×2 (08:06→20:36)
[2021-09-11] MEDS: LOPRESSOR TAB 25 MG PO SCH (08:06)
[2021-09-11] MEDS: LOVENOX INJ 40 MG SYR SC SCH (08:06)
[2021-09-11] MEDS: COLACE CAP 100 MG PO SCH ×2 (08:06→20:35)
[2021-09-11] MEDS: MIRALAX POWDER (1 DOSE 17 G) PO SCH (08:07)
[2021-09-11] MEDS: MYCOPHENOLATE MOFETIL 500 MG PO SCH ×2 (08:07→20:36)
[2021-09-11] MEDS: NEURONTIN CAP 300 MG PO SCH ×2 (08:07→20:36)
[2021-09-11] MEDS: SYNTHROID 125 mcg TAB PO SCH (08:08)
[2021-09-11] MEDS: NYSTATIN POWDER TOP SCH ×2 (08:08→20:37)
--- NOTE | 2021-09-11 08:47 | PCM.PROG ---
Progress Note - Progress Note for Day of Date of Exam: 09/10/21 - Subjective Subjective: WAS ADMITTED FOR MULTIPLE LUMBAR FX, ACUTE ON CHRONIC KIDNEY INJURY, BILATERAL LOWER EXTREMITY CELLULITIS, AND GENERALIZED WEAKNESS. HE HAS A HISTORY OF HTN, MORBID OBESITY, AND DM II. TODAY, HE IS ALERT AND ORIENTED, LYING IN BED ON MORNING ROUNDS. HE CONTINUES WITH LOW BACK PAIN AND WEAKNESS TODAY. ON EXAMINATION, HEART IS REGULAR IN RATE AND RHYTHM. BILATERAL LUNGS NOTED WITH DIMINISHED LUNG SOUNDS THROUGHOUT. ABDOMEN IS OBESE, SOFT, AND NON-TENDER WITH NORMAL BOWEL SOUNDS NOTED IN ALL QUADRANTS. THERE ARE MULTIPLE OPEN AND SCABBED WOUNDS NOTED TO BILATERAL LOWER EXTREMITIES. SCATTERED BRUISING AND SKIN TEARS ALSO NOTED. THERE IS SEROSANGUINOUS DRAINAGE NOTED FROM SOME OF THE WOUNDS ON BILATERAL LEGS. THERE IS AN OPEN WOUND TO THE LEFT HEEL. HIS VITALS THIS MORNING ARE 98.0-71-18-95%-187/84. LABS WERE OBTAINED. ABNORMAL LAB VALUES INCLUDE THE FOLLOWING: RBC 4.08, HGB 12.1, HCT 37.2, BUN 34, CREATININE 2.84, GLUCOSE 202, CALCIUM 8.2, TOTAL PROTEIN 5.8, ALBUMIN 1.9. BLOOD AND WOUND CULTURES ARE PENDING. HE IS CURRENTLY RECEIVING NORMAL SALINE AT 100 ML/HR, ZOSYN 3.375G IV TID, GENTAMICIN OINTMENT TO WOUNDS BID, DILAUDID 1MG IV Q4H PRN, PERCOCET 5/325MG PO Q4H PRN, LOVENOX 40MC SC DAILY, OTBS ACHS, HUMULIN R SLIDING SCALE. HIS HOME MEDICATIONS OF KLONOPIN, COLACE, NEURONTIN, SYNTHROID, LOPRESSOR, MIRALAX, ZANAFLEX, EFFEXOR, AND AMBIEN WERE RESUMED. DR.ALSAADI Weber ONSULTED WITH PATIENT AND PLANS TO TAKE HIM TO THE OR ON MONDAY FOR DEBRIDEMENT OF WOUNDS. PHYSICAL THERAPY WILL WORK WITH PATIENT TODAY. OTHERWISE, WE PLAN TO FOLLOW UP WITH AM LABS AND CONTINUE TO MONITOR. TIME SPENT ON CLINICAL ASSESSMENT, REVIEWING LABS AND IMAGING, DECISION MAKING, AND DOCUMENTATION GREATER THAN 45 MINUTES. - Past Medical Family Social History Past Med/Fam/Surg Hx: No changes since H&P Allergies: Allergies codeine Allergy (Verified 01/16/20 10:52) hydralazine Allergy (Verified 01/16/20 10:52) - Review of Systems ROS: No change since H&P - Vital Signs and I&O's Vital Signs: Temperature 98.7 F Pulse Rate [Left] 61 Pulse Rate 67 Respiratory Rate 20 Blood Pressure [Left Arm] 218/86 Blood Pressure [Right Arm] 191/87 Blood Pressure 162/78 O2 Sat by Pulse Oximetry 98 Intake and Output: Intake & Output 09/08/21 09/09/21 09/10/21 09/11/21 11:59 11:59 11:59 11:59 Intake Total 1411 / 1411 3212 / 3212 3284 / 3284 3504 / 3504 Output Total 1000 / 1000 1450 / 1450 1000 / 1000 Balance 1411 / 1411 2212 / 2212 1834 / 1834 2504 / 2504 - Physical Exam Oriented: Time, Person, Place Eyes: Normal Ear: Normal Nose: Normal Throat: Normal Respiratory: Generalized, Diminished Cardiovascular: Normal : Normal Auscultation: Bowel Sounds: Normal Tenderness: Normal Skin: Wound (MULTIPLE SKIN TEARS SCATTERED OVER BODY, SCABBED OVER WOUNDS TO BILATERAL LEGS AND FEET ), Bruising Musculoskeletal: Back:Lumbar, Tender Psychiatric: Normal Mood Description: Calm Affect: Normal Speech Pattern: Clear, Appropriate - Laboratory and Diagnostics Result Diagrams: 09/11/21 05:45 09/11/21 05:45 Labs: 09/09/21 18:35 Leg - Left Wound Culture - Preliminary 09/08/21 00:20 Toe - Left Little Wound Gram Stain - Final 09/08/21 00:20 Toe - Left Little Wound Culture - Final Proteus Mirabilis 09/07/21 14:35 Blood Blood Culture - Preliminary 09/07/21 14:28 Blood Blood Culture - Preliminary Laboratory WBC 6.1 X10^3/uL (3.6-10.0) 09/11/21 05:45 RBC 4.20 X10^6/uL (4.7-6.0) L 09/11/21 05:45 Hgb 12.5 g/dL (13.5-18.0) L 09/11/21 05:45 Hct 39.0 % (42.0-54.0) L 09/11/21 05:45 MCV 93.0 fL (80.0-100.0) 09/11/21 05:45 MCH 29.8 pg (27.0-34.0) 09/11/21 05:45 MCHC 32.1 g/dL (33.0-35.0) L 09/11/21 05:45 RDW 15.9 % (11.6-16.5) 09/11/21 05:45 Plt Count 250 X10^3/uL (150.0-450.0) 09/11/21 05:45 MPV 9.0 fL (7.4-11.0) 09/11/21 05:45 Neut % (Auto) 67.5 % (42.0-75.0) 09/11/21 05:45 Lymph % (Auto) 12.6 % (21.0-51.0) L 09/11/21 05:45 [place] % (Auto) 14.2 % (0.0-13.0) H 09/11/21 05:45 Eos % (Auto) 4.9 % (0.9-2.9) H 09/11/21 05:45 Baso % (Auto) 0.8 % (0.2-1.0) 09/11/21 05:45 Neut # (Auto) 4.1 x10^3/uL (2.2-4.8) 09/11/21 05:45 Lymph # (Auto) 0.8 X10^3/uL (1.3-2.9) L 09/11/21 05:45 [place] # (Auto) 0.9 x10^3/uL (0.3-0.8) H 09/11/21 05:45 Eos # (Auto) 0.3 x10^3/uL (0.0-0.2) H 09/11/21 05:45 Baso # (Auto) 0.1 X10^3/uL (0.0-0.1) 09/11/21 05:45 Absolute Nucleated RBC 0.0 /100WBC 09/11/21 05:45 Sodium 143 mmol/L (136-145) 09/11/21 05:45 Corrected Sodium 145 mmol/L (136-145) 09/11/21 05:45 Potassium 4.6 mmol/L (3.5-5.1) 09/11/21 05:45 Chloride 109 mmol/L (98-107) H 09/11/21 05:45 Carbon Dioxide 31.3 mmol/L (21-32) 09/11/21 05:45 BUN 31 mg/dL (7-18) H 09/11/21 05:45 Creatinine 2.75 mg/dL (0.70-1.30) H 09/11/21 05:45 Est GFR (MDRD) Af Amer 30 (>60) L 09/11/21 05:45 Est GFR (MDRD) Non-Af 25 (>60) L 09/11/21 05:45 Glucose 171 mg/dL (65-99) H 09/11/21 05:45 POC Glucose (mg/dL) 150 mg/dL (65-99) H 09/11/21 05:47 Hemoglobin A1c 6.5 % 09/08/21 06:23 Lactic Acid 1.9 mmol/L (0.4-2.0) 09/07/21 14:35 Calcium 8.5 mg/dL (8.5-10.1) 09/11/21 05:45 Corrected Calcium 10.1 mg/dL (8.5-10.1) 09/11/21 05:45 Total Bilirubin 0.20 mg/dL (0.2-1.0) 09/11/21 05:45 AST 16 Units/L (15-37) 09/11/21 05:45 ALT 26 Units/L (12-78) 09/11/21 05:45 Alkaline Phosphatase 86 Units/L (46-116) 09/11/21 05:45 Creatine Kinase 95 Units/L (39-308) 09/07/21 14:35 CK-MB (CK-2) 1.9 ng/mL (0-4.0) 09/07/21 14:35 CK/CKMB % Calc 2.0 % (<4) 09/07/21 14:35 Troponin I High Sens 31.7 ng/L (4.0-60.0) 09/07/21 14:35 Total Protein 5.8 g/dL (6.4-8.2) L 09/11/21 05:45 Albumin 2.0 g/dL (3.4-5.0) L 09/11/21 05:45 Globulin 3.8 g/dL (2.5-4.5) 09/11/21 05:45 Albumin/Globulin Ratio 0.5 Ratio (1.1-2.1) L 09/11/21 05:45 Lipase 60 Units/L (73-393) L 09/07/21 14:35 Specimen Type Catherized urine 09/07/21 05:55 Urine Color Yellow (YELLOW) 09/07/21 05:55 Urine Appearance Slightly hazy (CLEAR) 09/07/21 05:55 Urine pH 5.0 (5.0 - 8.0) 09/07/21 05:55 Ur Specific [place] 1.020 (1.000-1.030) 09/07/21 05:55 Urine Protein 4+ (NEGATIVE) 09/07/21 05:55 Urine Glucose (UA) 1+ (NEGATIVE) 09/07/21 05:55 Urine Ketones Negative (NEGATIVE) 09/07/21 05:55 Urine Occult Blood 2+ (NEGATIVE) 09/07/21 05:55 Urine Nitrite Negative (NEGATIVE) 09/07/21 05:55 Urine Bilirubin Negative (NEGATIVE) 09/07/21 05:55 Urine Urobilinogen Normal (NORMAL) 09/07/21 05:55 Ur Leukocyte Esterase Negative (NEGATIVE) 09/07/21 05:55 Urine RBC 3-5 /HPF (0-3) A 09/07/21 05:55 Urine WBC 0-2 /HPF (0-5) 09/07/21 05:55 Ur Squamous Epith Cells Rare /HPF (NEGATIVE) 09/07/21 05:55 Amorphous Sediment 1+ /HPF (NEGATIVE) 09/07/21 05:55 Urine Bacteria Trace /HPF (NEGATIVE) 09/07/21 05:55 Ur Culture Indicated? No/not indicated 09/07/21 05:55 SARS CoV-2 RNA Rapid SRINI Negative (NEGATIVE) 09/07/21 14:26 - Plan (1) Fracture of lumbar spine Status: Acute Qualifiers: Encounter type: initial encounter Lumbar vertebra fracture level: unspec ified lumbar vertebra Fracture type: closed Fracture morphology: other fracture Qualified Code(s): S32.008A - Other fracture of unspecified lumbar vertebra, initial encounter for closed fracture Plan: PT/OT, NORMAL SALINE AT 100 ML/HR, ZOSYN 3.375G IV TID, GENTAMICIN CREAM TO WOUNDS BID, DILAUDID 1MG IV Q4H PRN, PERCOCET 5/325MG PO Q4H PRN, LOVENOX 40MC SC DAILY, OTBS ACHS, HUMULIN R SLIDING SCALE. RESUME HOME MEDS (2) Cellulitis of both lower extremities Status: Acute (3) [id number] kidney injury Status: Acute Qualifiers: Acute renal failure type: unspecified Chronic kidney disease stage: unspecified stage Qualified Code(s): N17.9 - Acute kidney failure, unspecified; N18.9 - Chronic kidney disease, unspecified (4) General weakness Status: Acute (5) Hypertension Status: Acute Qualifiers: Hypertension type: primary hypertension Qualified Code(s): I10 - Essential (primary) hypertension
--- NOTE | 2021-09-11 08:50 | PCM.PROG ---
Progress Note - Progress Note for Day of Date of Exam: 09/11/21 - Subjective Subjective: WAS ADMITTED FOR MULTIPLE LUMBAR FX, ACUTE ON CHRONIC KIDNEY INJURY, BILATERAL LOWER EXTREMITY CELLULITIS, AND GENERALIZED WEAKNESS. HE HAS A HISTORY OF HTN, MORBID OBESITY, AND DM II. TODAY, HE IS ALERT AND ORIENTED, LYING IN BED ON MORNING ROUNDS. HE CONTINUES WITH LOW BACK PAIN AND WEAKNESS TODAY. ON EXAMINATION, HEART IS REGULAR IN RATE AND RHYTHM. BILATERAL LUNGS NOTED WITH DIMINISHED LUNG SOUNDS THROUGHOUT. ABDOMEN IS OBESE, SOFT, AND NON-TENDER WITH NORMAL BOWEL SOUNDS NOTED IN ALL QUADRANTS. THERE ARE MULTIPLE OPEN AND SCABBED WOUNDS NOTED TO BILATERAL LOWER EXTREMITIES. SCATTERED BRUISING AND SKIN TEARS ALSO NOTED. THERE IS SEROSANGUINOUS DRAINAGE NOTED FROM SOME OF THE WOUNDS ON BILATERAL LEGS. THERE IS AN OPEN WOUND TO THE LEFT HEEL. HIS VITALS THIS MORNING ARE 98.7-61-20-98%-149/72. IT DOES APPEAR THAT HIS BLOOD PRESSURE HAS BEEN ELEVATED THROUGHOUT THE NIGHT. LABS WERE OBTAINED. ABNORMAL LAB VALUES INCLUDE THE FOLLOWING: RBC 4.20, HGB 12.5, HCT 39.0, CHLORIDE 109, BUN 31, CREATININE 2.75, GLUCOSE 171, TOTAL PROTEIN 5.8, ALBUMIN 2.0. BLOOD AND WOUND CULTURES ARE PENDING. HE IS CURRENTLY RECEIVING NORMAL SALINE AT 100 ML/HR, ZOSYN 3.375G IV TID, GENTAMICIN OINTMENT TO WOUNDS BID, DILAUDID 1MG IV Q4H PRN, PERCOCET 5/325MG PO Q4H PRN, LOVENOX 40MC SC DAILY, OTBS ACHS, HUMULIN R SLIDING SCALE. HIS HOME MEDICATIONS OF KLONOPIN, COLACE, NEURONTIN, SYNTHROID, LOPRESSOR, MIRALAX, ZANAFLEX, EFFEXOR, AND AMBIEN WERE RESUMED. CONSULTED WITH PATIENT YESTERDAY AND PLANS TO TAKE HIM TO THE OR ON MONDAY FOR DEBRIDEMENT OF WOUNDS. PHYSICAL THERAPY WILL WORK WITH PATIENT TODAY. OTHERWISE, WE PLAN TO FOLLOW UP WITH AM LABS AND CONTINUE TO MONITOR. TIME SPENT ON CLINICAL ASSESSMENT, REVIEWING LABS AND IMAGING, DECISION MAKING, AND DOCUMENTATION GREATER THAN 45 MINUTES. - Past Medical Family Social History Past Med/Fam/Surg Hx: No changes since H&P Allergies: Allergies codeine Allergy (Verified 01/16/20 10:52) hydralazine Allergy (Verified 01/16/20 10:52) - Review of Systems ROS: No change since H&P - Vital Signs and I&O's Vital Signs: Temperature 98.7 F Pulse Rate [Left] 61 Pulse Rate 67 Respiratory Rate 20 Blood Pressure [Left Arm] 218/86 Blood Pressure [Right Arm] 191/87 Blood Pressure 162/78 O2 Sat by Pulse Oximetry 98 Intake and Output: Intake & Output 09/08/21 09/09/21 09/10/21 09/11/21 11:59 11:59 11:59 11:59 Intake Total 1411 / 1411 3212 / 3212 3284 / 3284 3504 / 3504 Output Total 1000 / 1000 1450 / 1450 1000 / 1000 Balance 1411 / 1411 2212 / 2212 1834 / 1834 2504 / 2504 - Physical Exam Oriented: Time, Person, Place Eyes: Normal Ear: Normal Nose: Normal Throat: Normal Respiratory: Generalized, Diminished Cardiovascular: Normal : Normal Auscultation: Bowel Sounds: Normal Tenderness: Normal Skin: Wound (MULTIPLE SKIN TEARS SCATTERED OVER BODY, SCABBED OVER WOUNDS TO BILATERAL LEGS AND FEET ), Bruising Musculoskeletal: Back:Lumbar, Tender Psychiatric: Normal Mood Description: Calm Affect: Normal Speech Pattern: Clear, Appropriate - Laboratory and Diagnostics Result Diagrams: 09/11/21 05:45 09/11/21 05:45 Labs: 09/09/21 18:35 Leg - Left Wound Culture - Preliminary 09/08/21 00:20 Toe - Left Little Wound Gram Stain - Final 09/08/21 00:20 Toe - Left Little Wound Culture - Final Proteus Mirabilis 09/07/21 14:35 Blood Blood Culture - Preliminary 09/07/21 14:28 Blood Blood Culture - Preliminary Laboratory WBC 6.1 X10^3/uL (3.6-10.0) 09/11/21 05:45 RBC 4.20 X10^6/uL (4.7-6.0) L 09/11/21 05:45 Hgb 12.5 g/dL (13.5-18.0) L 09/11/21 05:45 Hct 39.0 % (42.0-54.0) L 09/11/21 05:45 MCV 93.0 fL (80.0-100.0) 09/11/21 05:45 MCH 29.8 pg (27.0-34.0) 09/11/21 05:45 MCHC 32.1 g/dL (33.0-35.0) L 09/11/21 05:45 RDW 15.9 % (11.6-16.5) 09/11/21 05:45 Plt Count 250 X10^3/uL (150.0-450.0) 09/11/21 05:45 MPV 9.0 fL (7.4-11.0) 09/11/21 05:45 Neut % (Auto) 67.5 % (42.0-75.0) 09/11/21 05:45 Lymph % (Auto) 12.6 % (21.0-51.0) L 09/11/21 05:45 [place] % (Auto) 14.2 % (0.0-13.0) H 09/11/21 05:45 Eos % (Auto) 4.9 % (0.9-2.9) H 09/11/21 05:45 Baso % (Auto) 0.8 % (0.2-1.0) 09/11/21 05:45 Neut # (Auto) 4.1 x10^3/uL (2.2-4.8) 09/11/21 05:45 Lymph # (Auto) 0.8 X10^3/uL (1.3-2.9) L 09/11/21 05:45 [place] # (Auto) 0.9 x10^3/uL (0.3-0.8) H 09/11/21 05:45 Eos # (Auto) 0.3 x10^3/uL (0.0-0.2) H 09/11/21 05:45 Baso # (Auto) 0.1 X10^3/uL (0.0-0.1) 09/11/21 05:45 Absolute Nucleated RBC 0.0 /100WBC 09/11/21 05:45 Sodium 143 mmol/L (136-145) 09/11/21 05:45 Corrected Sodium 145 mmol/L (136-145) 09/11/21 05:45 Potassium 4.6 mmol/L (3.5-5.1) 09/11/21 05:45 Chloride 109 mmol/L (98-107) H 09/11/21 05:45 Carbon Dioxide 31.3 mmol/L (21-32) 09/11/21 05:45 BUN 31 mg/dL (7-18) H 09/11/21 05:45 Creatinine 2.75 mg/dL (0.70-1.30) H 09/11/21 05:45 Est GFR (MDRD) Af Amer 30 (>60) L 09/11/21 05:45 Est GFR (MDRD) Non-Af 25 (>60) L 09/11/21 05:45 Glucose 171 mg/dL (65-99) H 09/11/21 05:45 POC Glucose (mg/dL) 150 mg/dL (65-99) H 09/11/21 05:47 Hemoglobin A1c 6.5 % 09/08/21 06:23 Lactic Acid 1.9 mmol/L (0.4-2.0) 09/07/21 14:35 Calcium 8.5 mg/dL (8.5-10.1) 09/11/21 05:45 Corrected Calcium 10.1 mg/dL (8.5-10.1) 09/11/21 05:45 Total Bilirubin 0.20 mg/dL (0.2-1.0) 09/11/21 05:45 AST 16 Units/L (15-37) 09/11/21 05:45 ALT 26 Units/L (12-78) 09/11/21 05:45 Alkaline Phosphatase 86 Units/L (46-116) 09/11/21 05:45 Creatine Kinase 95 Units/L (39-308) 09/07/21 14:35 CK-MB (CK-2) 1.9 ng/mL (0-4.0) 09/07/21 14:35 CK/CKMB % Calc 2.0 % (<4) 09/07/21 14:35 Troponin I High Sens 31.7 ng/L (4.0-60.0) 09/07/21 14:35 Total Protein 5.8 g/dL (6.4-8.2) L 09/11/21 05:45 Albumin 2.0 g/dL (3.4-5.0) L 09/11/21 05:45 Globulin 3.8 g/dL (2.5-4.5) 09/11/21 05:45 Albumin/Globulin Ratio 0.5 Ratio (1.1-2.1) L 09/11/21 05:45 Lipase 60 Units/L (73-393) L 09/07/21 14:35 Specimen Type Catherized urine 09/07/21 05:55 Urine Color Yellow (YELLOW) 09/07/21 05:55 Urine Appearance Slightly hazy (CLEAR) 09/07/21 05:55 Urine pH 5.0 (5.0 - 8.0) 09/07/21 05:55 Ur Specific [place] 1.020 (1.000-1.030) 09/07/21 05:55 Urine Protein 4+ (NEGATIVE) 09/07/21 05:55 Urine Glucose (UA) 1+ (NEGATIVE) 09/07/21 05:55 Urine Ketones Negative (NEGATIVE) 09/07/21 05:55 Urine Occult Blood 2+ (NEGATIVE) 09/07/21 05:55 Urine Nitrite Negative (NEGATIVE) 09/07/21 05:55 Urine Bilirubin Negative (NEGATIVE) 09/07/21 05:55 Urine Urobilinogen Normal (NORMAL) 09/07/21 05:55 Ur Leukocyte Esterase Negative (NEGATIVE) 09/07/21 05:55 Urine RBC 3-5 /HPF (0-3) A 09/07/21 05:55 Urine WBC 0-2 /HPF (0-5) 09/07/21 05:55 Ur Squamous Epith Cells Rare /HPF (NEGATIVE) 09/07/21 05:55 Amorphous Sediment 1+ /HPF (NEGATIVE) 09/07/21 05:55 Urine Bacteria Trace /HPF (NEGATIVE) 09/07/21 05:55 Ur Culture Indicated? No/not indicated 09/07/21 05:55 SARS CoV-2 RNA Rapid SRINI Negative (NEGATIVE) 09/07/21 14:26 - Plan (1) Fracture of lumbar spine Status: Acute Qualifiers: Encounter type: initial encounter Lumbar vertebra fracture level: unspecified lumbar vertebra Fracture type: closed Fracture morphology: other fracture Qualified Code(s): S32.008A - Other fracture of unspecified lumbar vertebra, initial encounter for closed fracture Plan: PT/OT, NORMAL SALINE AT 100 ML/HR, ZOSYN 3.375G IV TID, GENTAMICIN CREAM TO WOUNDS BID, DILAUDID 1MG IV Q4H PRN, PERCOCET 5/325MG PO Q4H PRN, LOVENOX 40MC SC DAILY, OTBS ACHS, HUMULIN R SLIDING SCALE. RESUME HOME MEDS (2) Cellulitis of both lower extremities Status: Acute (3) [id number] kidney injury Status: Acute Qualifiers: Acute renal failure type: unspecified Chronic kidney disease stage: unspecified stage Qualified Code(s): N17.9 - Acute kidney failure, unspecified; N18.9 - Chronic kidney disease, unspecified (4) General weakness Status: Acute (5) Hypertension Status: Acute Qualifiers: Hypertension type: primary hypertension Qualified Code(s): I10 - Essential (primary) hypertension
[2021-09-11] MEDS: PERCOCET TAB 5/325 MG PO PRN ×2 (18:12→23:05)
[2021-09-11] MEDS ORDERED: COZAAR ONE (18:14)
[2021-09-11] MEDS: COZAAR PO SCH ×2 (18:17→20:35)
[2021-09-11] MEDS: SNACK - Diabetic Appropriate PO SCH (20:35)
[2021-09-11] MEDS: AMBIEN PO SCH (20:36)
[2021-09-11] MEDS: EFFEXOR TAB 50 MG (BID DOSING) PO SCH (20:36)
[2021-09-11] MEDS: ZANAFLEX PO PRN (20:37)
[2021-09-11] MEDS: KLONOPIN TAB 1 MG PO PRN (20:51)
[2021-09-11] MEDS ORDERED: COZAAR PO SCH (21:00)
[2021-09-12] MEDS: NS 1,000 ML IV 1,000 ML IV SCH ×3 (05:04→20:54)
[2021-09-12] MEDS: ZOSYN VIAL 3.375 GRAMS 3.375 G in NS 100 ML IV 100 ML IV SCH ×3 (05:05→20:59)
[2021-09-12 05:22] LABS: BASOPHILS # (AUTO) 0.1 X10^3/uL (0.0-0.1); BASOPHILS % (AUTO) 0.8 % (0.2-1.0); EOSINOPHILS # (AUTO) 0.2 x10^3/uL (0.0-0.2); EOSINOPHILS % (AUTO) 2.6 % (0.9-2.9); HEMOGLOBIN 12.3 g/dL (13.5-18.0); LYMPHOCYTES # (AUTO) 0.7 X10^3/uL (1.3-2.9); LYMPHOCYTES % (AUTO) 8.6 % (21.0-51.0); MEAN CORPUSCULAR HEMOGLOBIN 29.5 pg (27.0-34.0); MEAN CORPUSCULAR HGB CONC 32.5 g/dL (33.0-35.0); MEAN CORPUSCULAR VOLUME 90.8 fL (80.0-100.0); MEAN PLATELET VOLUME 9.1 fL (7.4-11.0); MONOCYTES # (AUTO) 0.9 x10^3/uL (0.3-0.8); MONOCYTES % (AUTO) 11.4 % (0.0-13.0); NEUTROPHILS # (AUTO) 5.8 x10^3/uL (2.2-4.8); NEUTROPHILS % (AUTO) 76.6 % (42.0-75.0); RED BLOOD COUNT 4.18 X10^6/uL (4.7-6.0); RED CELL DISTRIBUTION WIDTH 15.6 % (11.6-16.5); WHITE BLOOD COUNT 7.6 X10^3/uL (3.6-10.0)
[2021-09-12 05:38] LABS: ALBUMIN 1.9 g/dL (3.4-5.0); CALCIUM 8.7 mg/dL (8.5-10.1); CARBON DIOXIDE 28.4 mmol/L (21-32); COR CA(FOR HYPOALB) 10.4 mg/dL (8.5-10.1); CREATININE 2.42 mg/dL (0.70-1.30); TOTAL PROTEIN 5.9 g/dL (6.4-8.2)
[2021-09-12] MEDS: KLONOPIN TAB 1 MG PO PRN ×2 (06:29→21:00)
[2021-09-12] MEDS: COLACE CAP 100 MG PO SCH ×2 (08:44→20:56)
[2021-09-12] MEDS: LOPRESSOR TAB 25 MG PO SCH (08:45)
[2021-09-12] MEDS: GENTAMICIN TOPICAL CRM TOP SCH ×2 (08:45→20:57)
[2021-09-12] MEDS: MIRALAX POWDER (1 DOSE 17 G) PO SCH (08:45)
[2021-09-12] MEDS: NEURONTIN CAP 300 MG PO SCH ×2 (08:46→20:58)
[2021-09-12] MEDS: SYNTHROID 125 mcg TAB PO SCH (08:46)
[2021-09-12] MEDS: NYSTATIN POWDER TOP SCH ×2 (08:47→20:58)
[2021-09-12] MEDS ORDERED: CATAPRES-TTS-3 TD SCH (09:00)
[2021-09-12] MEDS: MYCOPHENOLATE MOFETIL 500 MG PO SCH ×2 (09:04→20:57)
[2021-09-12] MEDS: LOVENOX INJ 40 MG SYR SC SCH (09:16)
[2021-09-12] MEDS: NovoLIN R (or HumuLIN R) SUBCUT PRN ×2 (11:42→17:29)
[2021-09-12] MEDS ORDERED: COZAAR ONE (16:27)
[2021-09-12] MEDS: COZAAR PO SCH (16:39)
[2021-09-12] MEDS ORDERED: COZAAR PO SCH (17:00)
[2021-09-12] MEDS: EFFEXOR TAB 50 MG (BID DOSING) PO SCH (20:54)
[2021-09-12] MEDS: SNACK - Diabetic Appropriate PO SCH (20:54)
[2021-09-12] MEDS: AMBIEN PO SCH (20:56)
[2021-09-12] MEDS: PERCOCET TAB 5/325 MG PO PRN (21:02)
[2021-09-13] MEDS: ZOSYN VIAL 3.375 GRAMS 3.375 G in NS 100 ML IV 100 ML IV SCH ×3 (05:05→21:50)
[2021-09-13] MEDS: NS 1,000 ML IV 1,000 ML IV SCH ×3 (05:22→20:08)
[2021-09-13 06:19] LABS: BASOPHILS # (AUTO) 0.1 X10^3/uL (0.0-0.1); BASOPHILS % (AUTO) 0.9 % (0.2-1.0); EOSINOPHILS # (AUTO) 0.3 x10^3/uL (0.0-0.2); EOSINOPHILS % (AUTO) 3.7 % (0.9-2.9); HEMATOCRIT 39.6 % (42.0-54.0); HEMOGLOBIN 12.7 g/dL (13.5-18.0); LYMPHOCYTES # (AUTO) 0.6 X10^3/uL (1.3-2.9); LYMPHOCYTES % (AUTO) 8.8 % (21.0-51.0); MEAN CORPUSCULAR HEMOGLOBIN 29.3 pg (27.0-34.0); MEAN CORPUSCULAR HGB CONC 32.2 g/dL (33.0-35.0); MEAN CORPUSCULAR VOLUME 91.2 fL (80.0-100.0); MONOCYTES # (AUTO) 0.7 x10^3/uL (0.3-0.8); MONOCYTES % (AUTO) 9.4 % (0.0-13.0); NEUTROPHILS # (AUTO) 5.5 x10^3/uL (2.2-4.8); NEUTROPHILS % (AUTO) 77.2 % (42.0-75.0); RED BLOOD COUNT 4.35 X10^6/uL (4.7-6.0); RED CELL DISTRIBUTION WIDTH 15.8 % (11.6-16.5); WHITE BLOOD COUNT 7.1 X10^3/uL (3.6-10.0)
[2021-09-13 06:30] LABS: CALCIUM 8.7 mg/dL (8.5-10.1); CARBON DIOXIDE 24.2 mmol/L (21-32); CREATININE 2.37 mg/dL (0.70-1.30)
[2021-09-13 07:12] LABS: ALBUMIN 1.6 g/dL (3.4-5.0); COR CA(FOR HYPOALB) 10.6 mg/dL (8.5-10.1)
[2021-09-13] MEDS: DILAUDID INJ IVP PRN ×3 (07:48→21:15)
[2021-09-13] MEDS: LOPRESSOR TAB 25 MG PO SCH (08:01)
[2021-09-13] MEDS: LOVENOX INJ 40 MG SYR SC SCH (08:01)
[2021-09-13] MEDS: COZAAR PO SCH (08:01)
[2021-09-13] MEDS: MYCOPHENOLATE MOFETIL 500 MG PO SCH ×2 (08:02→20:10)
[2021-09-13] MEDS: MIRALAX POWDER (1 DOSE 17 G) PO SCH (08:02)
[2021-09-13] MEDS: COLACE CAP 100 MG PO SCH ×2 (08:02→20:09)
[2021-09-13] MEDS: NEURONTIN CAP 300 MG PO SCH ×2 (08:09→20:10)
[2021-09-13] MEDS: NYSTATIN POWDER TOP SCH ×2 (08:09→20:11)
[2021-09-13] MEDS: GENTAMICIN TOPICAL CRM TOP SCH ×2 (08:09→20:10)
[2021-09-13] MEDS: SYNTHROID 125 mcg TAB PO SCH (08:10)
[2021-09-13] MEDS ORDERED: FENTANYL VIAL INJ 100 mcg ONE (09:58)
[2021-09-13] MEDS ORDERED: DIPRIVAN VIAL 20 ML ONE (09:58)
[2021-09-13] MEDS ORDERED: VERSED ONE (09:58)
[2021-09-13] MEDS ORDERED: NS 1,000 ML IV 1,000 ML ONE (10:01)
[2021-09-13] MEDS ORDERED: ANCEF 1 GRAM IV PREMIX* 2 G/100 ML BAG IV ONE (10:06)
[2021-09-13] MEDS ORDERED: BETADINE SOLN ONE (10:14)
[2021-09-13] MEDS ORDERED: KETAMINE 50 MG/5 ML-NACL SYRNG ONE (10:33)
[2021-09-13] MEDS ORDERED: XYLOCAINE 1% and EPINEPHRINE 1:100,000 ONE (10:49)
[2021-09-13] MEDS ORDERED: NORMODYNE INJ 20 MG VIAL ONE (11:12)
[2021-09-13] MEDS: NORMODYNE INJ 20 MG VIAL IV PRN ×3 (12:20→20:16)
--- NOTE | 2021-09-13 13:50 | PCM.PROG ---
Progress Note - Progress Note for Day of Date of Exam: 09/12/21 - Subjective Subjective: WAS ADMITTED FOR MULTIPLE LUMBAR FX, ACUTE ON CHRONIC KIDNEY INJURY, BILATERAL LOWER EXTREMITY CELLULITIS, AND GENERALIZED WEAKNESS. HE HAS A HISTORY OF HTN, MORBID OBESITY, AND DM II. TODAY, HE IS ALERT AND ORIENTED, LYING IN BED ON MORNING ROUNDS. HE CONTINUES WITH LOW BACK PAIN AND WEAKNESS TODAY. ON EXAMINATION, HEART IS REGULAR IN RATE AND RHYTHM. BILATERAL LUNGS NOTED WITH DIMINISHED LUNG SOUNDS THROUGHOUT. ABDOMEN IS OBESE, SOFT, AND NON-TENDER WITH NORMAL BOWEL SOUNDS NOTED IN ALL QUADRANTS. THERE ARE MULTIPLE OPEN AND SCABBED WOUNDS NOTED TO BILATERAL LOWER EXTREMITIES. SCATTERED BRUISING AND SKIN TEARS ALSO NOTED. THERE IS SEROSANGUINOUS DRAINAGE NOTED FROM SOME OF THE WOUNDS ON BILATERAL LEGS. THERE IS AN OPEN WOUND TO THE LEFT HEEL. HIS VITALS THIS MORNING ARE 99.3-85-22-96%-180/98. IT DOES APPEAR THAT HIS BLOOD PRESSURE HAS BEEN ELEVATED THROUGHOUT THE NIGHT. LABS WERE OBTAINED. ABNORMAL LAB VALUES INCLUDE THE FOLLOWING: RBC 4.18, HGB 12.3, HCT 38.0, CHLORIDE 108, BUN 28, CREATININE 2.42, GLUCOSE 222, TOTAL PROTEIN 5.9, ALBUMIN 1.9. BLOOD AND WOUND CULTURES ARE PENDING. HE IS CURRENTLY RECEIVING NORMAL SALINE AT 100 ML/HR, ZOSYN 3.375G IV TID, GENTAMICIN OINTMENT TO WOUNDS BID, DILAUDID 1MG IV Q4H PRN, PERCOCET 5/325MG PO Q4H PRN, LOVENOX 40MC SC DAILY, OTBS ACHS, HUMULIN R SLIDING SCALE. HIS HOME MEDICATIONS OF KLONOPIN, COLACE, NEURONTIN, SYNTHROID, LOPRESSOR, MIRALAX, ZANAFLEX, EFFEXOR, AND AMBIEN WERE RESUMED. WE WILL CONTINUE WITH WOUND CARE AND CURRENT PLAN OF CARE TODAY. PLANS TO TAKE HIM TO THE OR ON MONDAY FOR DEBRIDEMENT OF WOUNDS. PHYSICAL THERAPY WILL WORK WITH PATIENT TODAY. OTHERWISE, WE PLAN TO FOLLOW UP WITH AM LABS AND CONTINUE TO MONITOR. TIME SPENT ON CLINICAL ASSESSMENT, REVIEWING LABS AND IMAGING, DECISION MAKING, AND DOCUMENTATION GREATER THAN 45 MINUTES. - Past Medical Family Social History Past Med/Fam/Surg Hx: No changes since H&P Allergies: Allergies codeine Allergy (Verified 01/16/20 10:52) hydralazine Allergy (Verified 01/16/20 10:52) - Review of Systems ROS: No change since H&P - Vital Signs and I&O's Vital Signs: Temperature 98.3 F Pulse Rate [Left] 65 Pulse Rate 93 Respiratory Rate 20 Blood Pressure [Left Arm] 180/90 Blood Pressure [Right Arm] 203/91 Blood Pressure 249/148 O2 Sat by Pulse Oximetry 99 Intake and Output: Intake & Output 09/11/21 09/12/21 09/13/21 09/14/21 11:59 11:59 11:59 11:59 Intake Total 3504 / 3504 2648 / 2648 1811 / 1811 Output Total 1000 / 1000 2500 / 2500 1795 / 1795 Balance 2504 / 2504 148 / 148 - Physical Exam Oriented: Time, Person, Place Eyes: Normal Ear: Normal Nose: Normal Throat: Normal Respiratory: Generalized, Diminished Cardiovascular: Normal : Normal Auscultation: Bowel Sounds: Normal Palpation: Normal Tenderness: Normal Skin: Wound (MULTIPLE SKIN TEARS SCATTERED OVER BODY, SCABBED OVER WOUNDS TO ALIYAH ATERAL LEGS AND FEET ), Bruising Musculoskeletal: Back:Lumbar, Tender Psychiatric: Normal Mood Description: Calm Affect: Normal Speech Pattern: Clear, Appropriate - Laboratory and Diagnostics Result Diagrams: 09/13/21 06:00 09/13/21 06:00 Labs: 09/07/21 14:35 Blood Blood Culture - Final 09/07/21 14:28 Blood Blood Culture - Final 09/09/21 18:35 Leg - Left Wound Culture - Final Proteus Mirabilis Enterobacter Aerogenes 09/08/21 00:20 Toe - Left Little Wound Gram Stain - Final 09/08/21 00:20 Toe - Left Little Wound Culture - Final Proteus Mirabilis Laboratory WBC 7.1 X10^3/uL (3.6-10.0) 09/13/21 06:00 RBC 4.35 X10^6/uL (4.7-6.0) L 09/13/21 06:00 Hgb 12.7 g/dL (13.5-18.0) L 09/13/21 06:00 Hct 39.6 % (42.0-54.0) L 09/13/21 06:00 MCV 91.2 fL (80.0-100.0) 09/13/21 06:00 MCH 29.3 pg (27.0-34.0) 09/13/21 06:00 MCHC 32.2 g/dL (33.0-35.0) L 09/13/21 06:00 RDW 15.8 % (11.6-16.5) 09/13/21 06:00 Plt Count 277 X10^3/uL (150.0-450.0) 09/13/21 06:00 MPV 9.0 fL (7.4-11.0) 09/13/21 06:00 Neut % (Auto) 77.2 % (42.0-75.0) H 09/13/21 06:00 Lymph % (Auto) 8.8 % (21.0-51.0) L 09/13/21 06:00 [place] % (Auto) 9.4 % (0.0-13.0) 09/13/21 06:00 Eos % (Auto) 3.7 % (0.9-2.9) H 09/13/21 06:00 Baso % (Auto) 0.9 % (0.2-1.0) 09/13/21 06:00 Neut # (Auto) 5.5 x10^3/uL (2.2-4.8) H 09/13/21 06:00 Lymph # (Auto) 0.6 X10^3/uL (1.3-2.9) L 09/13/21 06:00 [place] # (Auto) 0.7 x10^3/uL (0.3-0.8) 09/13/21 06:00 Eos # (Auto) 0.3 x10^3/uL (0.0-0.2) H 09/13/21 06:00 Baso # (Auto) 0.1 X10^3/uL (0.0-0.1) 09/13/21 06:00 Absolute Nucleated RBC 0.0 /100WBC 09/13/21 06:00 Sodium 140 mmol/L (136-145) 09/13/21 06:00 Corrected Sodium 143 mmol/L (136-145) 09/13/21 06:00 Potassium 4.3 mmol/L (3.5-5.1) 09/13/21 06:00 Chloride 106 mmol/L (98-107) 09/13/21 06:00 Carbon Dioxide 24.2 mmol/L (21-32) 09/13/21 06:00 BUN 27 mg/dL (7-18) H 09/13/21 06:00 Creatinine 2.37 mg/dL (0.70-1.30) H 09/13/21 06:00 Est GFR (MDRD) Af Amer 35 (>60) L 09/13/21 06:00 Est GFR (MDRD) Non-Af 29 (>60) L 09/13/21 06:00 Glucose 228 mg/dL (65-99) H 09/13/21 06:00 POC Glucose (mg/dL) 198 mg/dL (65-99) H 09/13/21 05:43 Hemoglobin A1c 6.5 % 09/08/21 06:23 Lactic Acid 1.9 mmol/L (0.4-2.0) 09/07/21 14:35 Calcium 8.7 mg/dL (8.5-10.1) 09/13/21 06:00 Corrected Calcium 10.6 mg/dL (8.5-10.1) H 09/13/21 06:00 Total Bilirubin 0.30 mg/dL (0.2-1.0) 09/13/21 06:00 AST 22 Units/L (15-37) 09/13/21 06:00 ALT 22 Units/L (12-78) 09/13/21 06:00 Alkaline Phosphatase 89 Units/L (46-116) 09/13/21 06:00 Creatine Kinase 95 Units/L (39-308) 09/07/21 14:35 CK-MB (CK-2) 1.9 ng/mL (0-4.0) 09/07/21 14:35 CK/CKMB % Calc 2.0 % (<4) 09/07/21 14:35 Troponin I High Sens 31.7 ng/L (4.0-60.0) 09/07/21 14:35 Total Protein 6.0 g/dL (6.4-8.2) L 09/13/21 06:00 Albumin 1.6 g/dL (3.4-5.0) L 09/13/21 06:00 Globulin 4.4 g/dL (2.5-4.5) 09/13/21 06:00 Albumin/Globulin Ratio 0.4 Ratio (1.1-2.1) L 09/13/21 06:00 Lipase 60 Units/L (73-393) L 09/07/21 14:35 Specimen Type Catherized urine 09/07/21 05:55 Urine Color Yellow (YELLOW) 09/07/21 05:55 Urine Appearance Slightly hazy (CLEAR) 09/07/21 05:55 Urine pH 5.0 (5.0 - 8.0) 09/07/21 05:55 Ur Specific [place] 1.020 (1.000-1.030) 09/07/21 05:55 Urine Protein 4+ (NEGATIVE) 09/07/21 05:55 Urine Glucose (UA) 1+ (NEGATIVE) 09/07/21 05:55 Urine Ketones Negative (NEGATIVE) 09/07/21 05:55 Urine Occult Blood 2+ (NEGATIVE) 09/07/21 05:55 Urine Nitrite Negative (NEGATIVE) 09/07/21 05:55 Urine Bilirubin Negative (NEGATIVE) 09/07/21 05:55 Urine Urobilinogen Normal (NORMAL) 09/07/21 05:55 Ur Leukocyte Esterase Negative (NEGATIVE) 09/07/21 05:55 Urine RBC 3-5 /HPF (0-3) A 09/07/21 05:55 Urine WBC 0-2 /HPF (0-5) 09/07/21 05:55 Ur Squamous Epith Cells Rare /HPF (NEGATIVE) 09/07/21 05:55 Amorphous Sediment 1+ /HPF (NEGATIVE) 09/07/21 05:55 Urine Bacteria Trace /HPF (NEGATIVE) 09/07/21 05:55 Ur Culture Indicated? No/not indicated 09/07/21 05:55 SARS CoV-2 RNA Rapid SRINI Negative (NEGATIVE) 09/07/21 14:26 Tissue Pathology To follow 09/13/21 11:02 - Plan (1) Fracture of lumbar spine Status: Acute Qualifiers: Encounter type: initial encounter Lumbar vertebra fracture level: unspecified lumbar vertebra Fracture type: closed Fracture morphology: other fracture Qualified Code(s): S32.008A - Other fracture of unspecified lumbar vertebra, initial encounter for closed fracture Plan: PT/OT, NORMAL SALINE AT 100 ML/HR, ZOSYN 3.375G IV TID, GENTAMICIN CREAM TO WOUNDS BID, DILAUDID 1MG IV Q4H PRN, PERCOCET 5/325MG PO Q4H PRN, LOVENOX 40MC SC DAILY, OTBS ACHS, HUMULIN R SLIDING SCALE. RESUME HOME MEDS (2) Cellulitis of both lower extremities Status: Acute (3) [id number] kidney injury Status: Acute Qualifiers: Acute renal failure type: unspecified Chronic kidney disease stage: unspecified stage Qualified Code(s): N17.9 - Acute kidney failure, unspecified; N18.9 - Chronic kidney disease, unspecified (4) General weakness Status: Acute (5) Hypertension Status: Acute Qualifiers: Hypertension type: primary hypertension Qualified Code(s): I10 - Essential (primary) hypertension
[2021-09-13] MEDS ORDERED: STERILE WATER IRRIGATION IR ONE (15:11)
[2021-09-13] MEDS: SNACK - Diabetic Appropriate PO SCH (20:08)
[2021-09-13] MEDS: EFFEXOR TAB 50 MG (BID DOSING) PO SCH (20:09)
[2021-09-13] MEDS: AMBIEN PO SCH (20:09)
[2021-09-13] MEDS: KLONOPIN TAB 1 MG PO PRN (20:11)
[2021-09-13] MEDS: PERCOCET TAB 5/325 MG PO PRN (20:16)
[2021-09-14] MEDS: NS 1,000 ML IV 1,000 ML IV SCH ×2 (05:06→11:06)
[2021-09-14] MEDS: ZOSYN VIAL 3.375 GRAMS 3.375 G in NS 100 ML IV 100 ML IV SCH (05:06)
[2021-09-14] MEDS: KLONOPIN TAB 1 MG PO PRN (05:41)
[2021-09-14 06:31] LABS: BASOPHILS # (AUTO) 0.1 X10^3/uL (0.0-0.1); BASOPHILS % (AUTO) 1.1 % (0.2-1.0); EOSINOPHILS # (AUTO) 0.3 x10^3/uL (0.0-0.2); HEMATOCRIT 39.9 % (42.0-54.0); HEMOGLOBIN 12.9 g/dL (13.5-18.0); LYMPHOCYTES # (AUTO) 0.8 X10^3/uL (1.3-2.9); LYMPHOCYTES % (AUTO) 10.9 % (21.0-51.0); MEAN CORPUSCULAR HEMOGLOBIN 29.7 pg (27.0-34.0); MEAN CORPUSCULAR HGB CONC 32.4 g/dL (33.0-35.0); MEAN CORPUSCULAR VOLUME 91.6 fL (80.0-100.0); MEAN PLATELET VOLUME 8.7 fL (7.4-11.0); MONOCYTES # (AUTO) 0.8 x10^3/uL (0.3-0.8); MONOCYTES % (AUTO) 11.9 % (0.0-13.0); NEUTROPHILS % (AUTO) 71.1 % (42.0-75.0); RED BLOOD COUNT 4.35 X10^6/uL (4.7-6.0)
[2021-09-14 06:37] LABS: ALBUMIN 1.8 g/dL (3.4-5.0); CALCIUM 8.5 mg/dL (8.5-10.1); CARBON DIOXIDE 28.8 mmol/L (21-32); COR CA(FOR HYPOALB) 10.3 mg/dL (8.5-10.1); CREATININE 2.54 mg/dL (0.70-1.30); TOTAL PROTEIN 6.1 g/dL (6.4-8.2)
[2021-09-14] MEDS: GENTAMICIN TOPICAL CRM TOP SCH (08:59)
[2021-09-14] MEDS: COLACE CAP 100 MG PO SCH (09:00)
[2021-09-14] MEDS: COZAAR PO SCH (09:00)
[2021-09-14] MEDS: SYNTHROID 125 mcg TAB PO SCH (09:00)
[2021-09-14] MEDS: LOPRESSOR TAB 25 MG PO SCH (09:00)
[2021-09-14] MEDS: LOVENOX INJ 40 MG SYR SC SCH (09:01)
[2021-09-14] MEDS: NEURONTIN CAP 300 MG PO SCH (09:01)
[2021-09-14] MEDS: MIRALAX POWDER (1 DOSE 17 G) PO SCH (09:01)
[2021-09-14] MEDS: MYCOPHENOLATE MOFETIL 500 MG PO SCH (09:02)
[2021-09-14] MEDS: NYSTATIN POWDER TOP SCH (09:02)
[2021-09-14] MEDS: NORMODYNE INJ 20 MG VIAL IV PRN (10:16)
[2021-09-14 10:56] VITALS: BP 178/96
--- NOTE | 2021-09-14 11:10 | PCM.PROG ---
Progress Note - Progress Note for Day of Date of Exam: 09/13/21 - Subjective Subjective: WAS ADMITTED FOR MULTIPLE LUMBAR FX, ACUTE ON CHRONIC KIDNEY INJURY, BILATERAL LOWER EXTREMITY CELLULITIS, AND GENERALIZED WEAKNESS. HE HAS A HISTORY OF HTN, MORBID OBESITY, AND DM II. TODAY, HE IS ALERT AND ORIENTED, LYING IN BED ON MORNING ROUNDS. HE CONTINUES WITH LOW BACK PAIN AND WEAKNESS TODAY. ON EXAMINATION, HEART IS REGULAR IN RATE AND RHYTHM. BILATERAL LUNGS NOTED WITH DIMINISHED LUNG SOUNDS THROUGHOUT. ABDOMEN IS OBESE, SOFT, AND NON-TENDER WITH NORMAL BOWEL SOUNDS NOTED IN ALL QUADRANTS. THERE ARE MULTIPLE OPEN AND SCABBED WOUNDS NOTED TO BILATERAL LOWER EXTREMITIES. SCATTERED BRUISING AND SKIN TEARS ALSO NOTED. THERE IS SEROSANGUINOUS DRAINAGE NOTED FROM SOME OF THE WOUNDS ON BILATERAL LEGS. THERE IS AN OPEN WOUND TO THE LEFT HEEL. HIS VITALS THIS MORNING ARE 98.4-69-20-99%-217/89. IT DOES APPEAR THAT HIS BLOOD PRESSURE HAS BEEN ELEVATED THROUGHOUT THE NIGHT. LABS WERE OBTAINED. ABNORMAL LAB VALUES INCLUDE THE FOLLOWING: RBC 4.35, HGB 12.7, HCT 39.6, BUN 27, CREATININE 2.37, GLUCOSE 228, TOTAL PROTEIN 6.0, ALBUMIN 1.6. WOUND CULTRES ARE POSITIVE FOR PROTEUS MIRABILIS AND ENTEROBACTER AEROGENES. HE IS CURRENTLY RECEIVING NORMAL SALINE AT 100 ML/HR, ZOSYN 3.375G IV TID, GENTAMICIN OINTMENT TO WOUNDS BID, DILAUDID 1MG IV Q4H PRN, PERCOCET 5/325MG PO Q4H PRN, LOVENOX 40MC SC DAILY, OTBS ACHS, HUMULIN R SLIDING SCALE. HIS HOME MEDICATIONS OF KLONOPIN, COLACE, NEURONTIN, SYNTHROID, LOPRESSOR, MIRALAX, ZANAFLEX, EFFEXOR, AND AMBIEN WERE RESUMED. PLANS TO TAKE HIM TO THE OR TODAY FOR DEBRIDEMENT OF LOWER EXTREMITY WOUNDS. WE ARE IN AGREEMENT WITH PLANS. PHYSICAL THERAPY WILL WORK WITH PATIENT TODAY. OTHERWISE, WE PLAN TO FOLLOW UP WITH AM LABS AND CONTINUE TO MONITOR. AFTER DISCHARGE, HE WILL BE GOING TO THE [facility] FOR PHYSICAL THERAPY, REHAB, AND WOUND CARE. TIME SPENT ON CLINICAL ASSESSMENT, REVIEWING LABS AND IMAGING, DECISION MAKING, AND DOCUMENTATION GREATER THAN 45 MINUTES. - Past Medical Family Social History Past Med/Fam/Surg Hx: No changes since H&P Allergies: Allergies codeine Allergy (Verified 01/16/20 10:52) hydralazine Allergy (Verified 01/16/20 10:52) - Review of Systems ROS: No change since H&P - Vital Signs and I&O's Vital Signs: Temperature 98.4 F Pulse Rate [Left] 69 Pulse Rate 93 Respiratory Rate 20 Blood Pressure [Right Calf] 200/98 Blood Pressure [Left Arm] 194/88 Blood Pressure [Right Arm] 178/96 Blood Pressure 249/148 O2 Sat by Pulse Oximetry 99 Intake and Output: Intake & Output 09/11/21 09/12/21 09/13/21 09/14/21 11:59 11:59 11:59 11:59 Intake Total 3504 / 3504 2648 / 2648 1811 / 1811 2968 / 2968 Output Total 1000 / 1000 2500 / 2500 1795 / 1795 1999 / 1999 Balance 2504 / 2504 148 / 148 16 / 16 968 / 968 - Physical Exam Oriented: Time, Person, Place Eyes: Normal Ear: Normal Nose: Normal Throat: Normal Respiratory: Generalized, Diminished Cardiovascular: Normal : Normal Auscultation: Bowel Sounds: Normal Palpation: Normal Tenderness: Normal Skin: Wound (MULTIPLE SKIN TEARS SCATTERED OVER BODY, SCABBED OVER WOUNDS TO BILATERAL LEGS AND FEET ), Bruising Musculoskeletal: Back:Lumbar, Tender Psychiatric: Normal Mood Description: Calm Affect: Normal Speech Pattern: Clear, Appropriate - Laboratory and Diagnostics Result Diagrams: 09/14/21 06:15 09/14/21 06:15 Labs: 09/13/21 11:37 Toe - Left Big Wound Gram Stain - Final 09/13/21 11:37 Toe - Left Third Wound Gram Stain - Final 09/07/21 14:35 Blood Blood Culture - Final 09/07/21 14:28 Blood Blood Culture - Final 09/09/21 18:35 Leg - Left Wound Culture - Final Proteus Mirabilis Enterobacter Aerogenes 09/08/21 00:20 Toe - Left Little Wound Gram Stain - Final 09/08/21 00:20 Toe - Left Little Wound Culture - Final Proteus Mirabilis Laboratory WBC 7.0 X10^3/uL (3.6-10.0) 09/14/21 06:15 RBC 4.35 X10^6/uL (4.7-6.0) L 09/14/21 06:15 Hgb 12.9 g/dL (13.5-18.0) L 09/14/21 06:15 Hct 39.9 % (42.0-54.0) L 09/14/21 06:15 MCV 91.6 fL (80.0-100.0) 09/14/21 06:15 MCH 29.7 pg (27.0-34.0) 09/14/21 06:15 MCHC 32.4 g/dL (33.0-35.0) L 09/14/21 06:15 RDW 16.0 % (11.6-16.5) 09/14/21 06:15 Plt Count 290 X10^3/uL (150.0-450.0) 09/14/21 06:15 MPV 8.7 fL (7.4-11.0) 09/14/21 06:15 Neut % (Auto) 71.1 % (42.0-75.0) 09/14/21 06:15 Lymph % (Auto) 10.9 % (21.0-51.0) L 09/14/21 06:15 [place] % (Auto) 11.9 % (0.0-13.0) 09/14/21 06:15 Eos % (Auto) 5.0 % (0.9-2.9) H 09/14/21 06:15 Baso % (Auto) 1.1 % (0.2-1.0) H 09/14/21 06:15 Neut # (Auto) 5.0 x10^3/uL (2.2-4.8) H 09/14/21 06:15 Lymph # (Auto) 0.8 X10^3/uL (1.3-2.9) L 09/14/21 06:15 Graham # (Auto) 0.8 x10^3/uL (0.3-0.8) 09/14/21 06:15 Eos # (Auto) 0.3 x10^3/uL (0.0-0.2) H 09/14/21 06:15 Baso # (Auto) 0.1 X10^3/uL (0.0-0.1) 09/14/21 06:15 Absolute Nucleated RBC 0.0 /100WBC 09/14/21 06:15 Sodium 142 mmol/L (136-145) 09/14/21 06:15 Corrected Sodium 144 mmol/L (136-145) 09/14/21 06:15 Potassium 4.7 mmol/L (3.5-5.1) 09/14/21 06:15 Chloride 108 mmol/L (98-107) H 09/14/21 06:15 Carbon Dioxide 28.8 mmol/L (21-32) 09/14/21 06:15 BUN 27 mg/dL (7-18) H 09/14/21 06:15 Creatinine 2.54 mg/dL (0.70-1.30) H 09/14/21 06:15 Est GFR (MDRD) Af Amer 32 (>60) L 09/14/21 06:15 Est GFR (MDRD) Non-Af 27 (>60) L 09/14/21 06:15 Glucose 190 mg/dL (65-99) H 09/14/21 06:15 POC Glucose (mg/dL) 187 mg/dL (65-99) H 09/14/21 10:59 Hemoglobin A1c 6.5 % 09/08/21 06:23 Lactic Acid 1.9 mmol/L (0.4-2.0) 09/07/21 14:35 Calcium 8.5 mg/dL (8.5-10.1) 09/14/21 06:15 Corrected Calcium 10.3 mg/dL (8.5-10.1) H 09/14/21 06:15 Total Bilirubin 0.20 mg/dL (0.2-1.0) 09/14/21 06:15 AST 21 Units/L (15-37) 09/14/21 06:15 ALT 21 Units/L (12-78) 09/14/21 06:15 Alkaline Phosphatase 88 Units/L (46-116) 09/14/21 06:15 Creatine Kinase 95 Units/L (39-308) 09/07/21 14:35 CK-MB (CK-2) 1.9 ng/mL (0-4.0) 09/07/21 14:35 CK/CKMB % Calc 2.0 % (<4) 09/07/21 14:35 Troponin I High Sens 31.7 ng/L (4.0-60.0) 09/07/21 14:35 Total Protein 6.1 g/dL (6.4-8.2) L 09/14/21 06:15 Albumin 1.8 g/dL (3.4-5.0) L 09/14/21 06:15 Globulin 4.3 g/dL (2.5-4.5) 09/14/21 06:15 Albumin/Globulin Ratio 0.4 Ratio (1.1-2.1) L 09/14/21 06:15 Lipase 60 Units/L (73-393) L 09/07/21 14:35 Specimen Type Catherized urine 09/07/21 05:55 Urine Color Yellow (YELLOW) 09/07/21 05:55 Urine Appearance Slightly hazy (CLEAR) 09/07/21 05:55 Urine pH 5.0 (5.0 - 8.0) 09/07/21 05:55 Ur Specific Pansey 1.020 (1.000-1.030) 09/07/21 05:55 Urine Protein 4+ (NEGATIVE) 09/07/21 05:55 Urine Glucose (UA) 1+ (NEGATIVE) 09/07/21 05:55 Urine Ketones Negative (NEGATIVE) 09/07/21 05:55 Urine Occult Blood 2+ (NEGATIVE) 09/07/21 05:55 Urine Nitrite Negative (NEGATIVE) 09/07/21 05:55 Urine Bilirubin Negative (NEGATIVE) 09/07/21 05:55 Urine Urobilinogen Normal (NORMAL) 09/07/21 05:55 Ur Leukocyte Esterase Negative (NEGATIVE) 09/07/21 05:55 Urine RBC 3-5 /HPF (0-3) A 09/07/21 05:55 Urine WBC 0-2 /HPF (0-5) 09/07/21 05:55 Ur Squamous Epith Cells Rare /HPF (NEGATIVE) 09/07/21 05:55 Amorphous Sediment 1+ /HPF (NEGATIVE) 09/07/21 05:55 Urine Bacteria Trace /HPF (NEGATIVE) 09/07/21 05:55 Ur Culture Indicated? No/not indicated 09/07/21 05:55 SARS CoV-2 RNA Rapid SRINI Negative (NEGATIVE) 09/14/21 09:25 Tissue Pathology To follow 09/13/21 11:02 - Plan (1) Fracture of lumbar spine Status: Acute Qualifiers: Encounter type: initial encounter Lumbar vertebra fracture level: unspecified lumbar vertebra Fracture type: closed Fracture morphology: other fracture Qualified Code(s): S32.008A - Other fracture of unspecified lumbar vertebra, initial encounter for closed fracture Plan: PT/OT, NORMAL SALINE AT 100 ML/HR, ZOSYN 3.375G IV TID, GENTAMICIN CREAM TO WOUNDS BID, DILAUDID 1MG IV Q4H PRN, PERCOCET 5/325MG PO Q4H PRN, LOVENOX 40MC SC DAILY, OTBS ACHS, HUMULIN R SLIDING SCALE. RESUME HOME MEDS (2) Cellulitis of both lower extremities Status: Acute (3) [id number] kidney injury Status: Acute Qualifiers: Acute renal failure type: unspecified Chronic kidney disease stage: unspecified stage Qualified Code(s): N17.9 - Acute kidney failure, unspecified; N18.9 - Chronic kidney disease, unspecified (4) General weakness Status: Acute (5) Hypertension Status: Acute Qualifiers: Hypertension type: primary hypertension Qualified Code(s): I10 - Essential (primary) hypertension
== END 2021-09-14 12:05 | DRG 603 ==
LOC: MED/SURG 14:09 → ER 14:09 → MED/SURG 20:50
PROVIDERS: ADMIT Internal Medicine; ATTEND Internal Medicine